=== PATIENT | male | born 1955 | race Caucasian/White ===

== ENCOUNTER 2016-06-07 20:16 | Inpatient (IN) | payer OTHER ==
[~2016-06-07] VITALS: Ht 185.4 cm; Wt 106.5 kg
[2016-06-07] MEDS ORDERED: ALBUTEROL 0.5% (NEB) 2.5 MG/0.5 ML AMP INH STA ×2 (20:21→21:34)
[2016-06-07] MEDS ORDERED: FUROSEMIDE 40 MG INJ IV ONE (20:30)
[2016-06-07] MEDS ORDERED: ASPIRIN 81 MG TAB PO ONE (20:30)
[2016-06-07] MEDS ORDERED: ENALAPRILAT 1.25 MG INJ IV ONE (20:30)
[2016-06-07 20:37] LABS: ADD SCAN DIFF NO
[2016-06-07 20:38] LABS: BASOPHIL # 0.1 10^3/ul (0.0-0.1); BASOPHILS % 0.7 % (0.0-2.0); EOSINOPHILS # 0.3 10^3/ul (0.0-0.5); EOSINOPHILS % 3.5 % (0.0-7.0); HEMATOCRIT 41.5 % (42.0-52.0); HEMOGLOBIN 13.9 g/dl (14.0-18.0); LYMPHOCYTES # 1.7 10^3/ul (0.8-2.9); LYMPHOCYTES % 18.6 % (15.0-51.0); MEAN CORPUSCULAR HEMOGLOBIN 30.5 pg (29.0-33.0); MEAN CORPUSCULAR HGB CONC 33.5 g/dl (32.0-37.0); MEAN CORPUSCULAR VOLUME 91.2 fl (82.0-101.0); MEAN PLATELET VOLUME 9.7 fl (7.4-10.4); MONOCYTE # 0.8 10^3/ul (0.3-0.9); MONOCYTES % 8.5 % (0.0-11.0); NEUTROPHIL # 6.2 10^3/ul (1.6-7.5); PLATELET COUNT 148 10^3/UL (140-415); RED BLOOD COUNT 4.55 10^6/ul (4.70-6.10); RED CELL DISTRIBUTION WIDTH 13.5 % (11.5-14.5); WHITE BLOOD COUNT 9.2 10^3/ul (4.8-10.8)
[2016-06-07 20:45] LABS: AADO2 Arterial 486.5 mmHg (7.0-24.0); Allen Test ACCEPTAB; Arterial Base Excess 3.1 mmol/L (-3.0-3); Arterial COHb 0.2 % (0.0-3.0); Arterial Fraction of Oxyhgb 98.1 % (93.0-99.0); Arterial HCO3 31.3 mmol/L (22.0-26.0); Arterial MetHb 0.4 % (0.0-1.5); Arterial Total Hemglobin 14.9 g/dl (12.0-18.0); MODE MASK - NRB
--- NOTE | 2016-06-07 20:53 | RADRPT ---
PROCEDURE: XR Chest. CLINICAL INDICATION: Pain. TECHNIQUE: Single frontal chest x-ray. COMPARISON: None. FINDINGS: The cardiomediastinal silhouette is unremarkable. Us minimal atelectasis at the left lung base.. No focal infiltrate is seen. There is no pleural effusion. There is no pneumothorax. Posterior pedi yoanna screws lower cervical spine are partially visualized.. IMPRESSION: Minimal left basilar atelectasis. RPTAT: [facility] .Dilan Carrillo MD, MD Date Time Electronically viewed and signed by .Dilan Carrillo MD, on 06/07/2016 20:52 .K/
[2016-06-07 21:42] LABS: INR 0.91; PROTIME 12.2 Sec (12.2-14.2)
[2016-06-07 22:00] LABS: ALBUMIN 3.4 g/dl (3.3-4.9)
[2016-06-07] MEDS ORDERED: predniSONE 20 MG TAB PO ONE (22:00)
[2016-06-07 22:03] LABS: ALBUMIN/GLOBULIN RATIO 1.25; BILIRUBIN,INDIRECT 0.2 mg/dl (0-1.1); BILIRUBIN,TOTAL 0.2 mg/dl (0.2-1.3); CREATININE 0.88 mg/dl (0.61-1.24); TOTAL PROTEIN 6.1 g/dl (6.1-8.1)
[2016-06-07 22:04] LABS: CALCIUM 7.7 mg/dl (8.4-10.2)
[2016-06-07 22:14] LABS: TROPONIN-I 0.031 ng/ml (0.00-0.12)
[2016-06-07] MEDS ORDERED: LEVOFLOXACIN 750MG/D5W (PMX) 150 ML IVPB ONE (22:30)
[2016-06-07] MEDS ORDERED: POTASSIUM CHLORIDE 250 ML IVPB ONE (22:30)
--- NOTE | 2016-06-07 22:33 | ERA ---
ER Documentation Chief Complaint Date/Time DATE: 06/07/16 TIME: 22:26 Chief Complaint SOB,hx COPD,received nitro sprays X4,c/o back pain HPI 60-year-old man brought in by EMS from home for chest discomfort and shortness of breath. Patient complains of wheezing and has not a history of chronic obstructive pulmonary disease. He states he recently finished his Medrol Dosepak, and was discharged 2 weeks ago from the hospital after being treated as an inpatient for pneumonia. He denies calf or leg swelling, no fevers or chills, no headache or blurry vision, no vomiting or diarrhea. Patient denies home oxygen use. At the scene patient was given multiple doses of sublingual nitroglycerin due to severe hypertension. Patient was transported here by EMS without further complications. ROS All systems reviewed and are negative except as per history of present illness. Allergies Allergies: Coded Allergies: No Known Allergy (Unverified , 06/07/16) PMhx/Soc Hypertension, chronic obstructive pulmonary disease, obesity, recent pneumonia Anesthesia Reaction: No Hx Neurological Disorder: No Hx Psychiatric Problems: No Hx Alcohol Use: No Hx Substance Use: No Hx Tobacco Use: Yes Smoking Status: Former smoker FmHx Family History: No diabetes Physical Exam Vitals Vital Signs Date Time Temp Pulse Resp B/P Pulse Ox O2 Delivery O2 Flow Rate FiO2 06/07/16 22:15 106 16 93 Nasal Cannula 3.0 06/07/16 20:40 108 18 100 Non Rebreather Mask 15.0 06/07/16 20:21 99.3 112 17 144/112 98 Physical Exam GENERAL: Well-developed, well-nourished, well-hydrated, dyspneic. Afebrile HEENT: Moist mucous membranes, pink conjunctiva, no cervical spine tenderness or step-off deformities, no goiter, no jaundice or icterus, extraocular movements intact without pain. No submandibular induration, and no pharyngeal erythema NEURO: Alert and oriented 3, cranial nerves II through XII intact bilaterally, pupils equal round reactive to light, no focal deficits or facial asymmetry, sensation intact distally Strength 5/5 in upper and lower extremities bilaterally CARDIAC: Tachycardic and regular, no murmurs rubs or gallops LUNGS: Bibasilar crackles and wheezing throughout, no stridor ABDOMEN: Soft nontender, no guarding, no rigidity, no rebound, no psoas sign no obturator sign. Normoactive bowel sounds SKIN: Warm and dry to touch, no abrasions, contusions, or hematomas, no lacerations, no ecchymosis, no target lesions, and without ulcers EXTREMITIES: No clubbing cyanosis or edema, calves are bilaterally symmetrical, no Homans sign, no popliteal cord sign. Distal pulses equal and bilateral PSYCH: Normal affect without agitation or irritability Result Diagram: 06/07/16202406/07/162122 Results 24 hrs Laboratory Tests Test 06/07/16 20:21 06/07/16 20:25 06/07/16 21:23 Arterial Blood HCO3 31.3mmol/L Arterial Blood Base Excess 3.1mmol/L Arterial Blood Oxygen Saturation 98.7mmHG Dillon Test ACCEPTAB Arterial Blood Gas Puncture Site Right Radial Arterial Blood Carboxyhemoglobin 0.2% Arterial Blood Date Drawn 06/07/2016 8:32:36 PM Arterial Blood Methemoglobin 0.4% Arterial Blood pCO2 (Temp correct) 63.8mmhg Arterial Blood pH (Temp corrected) 7.309 Arterial Blood pO2 (Temp corrected) 162.7mmHG Blood Gas A-a O2 Differential 486.5mmHg Blood Gas Modality MASK - NRB Blood Gas Notified Time 06/07/2016 8:45:33 PM Blood Gas Notified Whom AA Blood Gas Specimen Source Blood arterial Blood Gas Temperature 37.0C FiO2 100.0% Oxyhemoglobin Percent 98.1% Total Hemoglobin 14.9g/dl Basophils # 0.110^3/ul Basophils % 0.7% Eosinophils # 0.310^3/ul Eosinophils % 3.5% Hematocrit 41.5% Hemoglobin 13.9g/dl INR International Normalized Ratio 0.91 Lymphocytes # 1.710^3/ul Lymphocytes % 18.6% Mean Corpuscular Hemoglobin 30.5pg Mean Corpuscular Hemoglobin Concent 33.5g/dl Mean Corpuscular Volume 91.2fl Mean Platelet Volume 9.7fl Monocytes # 0.810^3/ul Monocytes % 8.5% Neutrophils # 6.210^3/ul Neutrophils % 67.0% Nucleated Red Blood Cells # 0.010^3/ul Nucleated Red Blood Cells % 0.0/100WBC Platelet Count 44519^3/UL Prothrombin Time 12.2Sec Prothrombin Time Ratio 1.0 Red Blood Count 4.5510^6/ul Red Cell Distribution Width 13.5% White Blood Count 9.210^3/ul Alanine Aminotransferase (ALT/SGPT) 48IU/L Albumin 3.4g/dl Albumin/Globulin Ratio 1.25 Alkaline Phosphatase 83IU/L Anion Gap 13 Aspartate Amino Transf (AST/SGOT) 30IU/L Blood Urea Nitrogen 12mg/dl Calcium Level 7.7mg/dl Carbon Dioxide Level 29mmol/L Chloride Level 103mmol/L Creatinine 0.88mg/dl Direct Bilirubin 0.00mg/dl Globulin 2.70g/dl Glucose Level 115mg/dl Indirect Bilirubin 0.2mg/dl Lipase 56U/L Potassium Level 3.0mmol/L Sodium Level 142mmol/L Total Bilirubin 0.2mg/dl Total Protein 6.1g/dl Troponin I 0.031ng/ml Current Medications Medications (Trade) Dose Ordered Sig/Peng Route PRN Reason Start Time Stop Time Status Last Admin Dose Admin Aspirin (Aspirin) 324 mg ONCE ONCE PO 06/07/16 20:30 06/07/16 20:31 DC 06/07/16 20:53 Furosemide (Lasix) 80 mg ONCE ONCE IV 06/07/16 20:30 06/07/16 20:31 DC 06/07/16 20:55 Enalaprilat (Vasotec Iv) 1.25 mg ONCE ONCE IV 06/07/16 20:30 06/07/16 20:31 DC 06/07/16 20:54 Albuterol (Proventil 0.5% (Neb)) 10 mg ONCE STAT INH 06/07/16 20:21 06/07/16 20:23 DC 06/07/16 20:41 Albuterol (Proventil 0.5% (Neb)) 10 mg ONCE STAT INH 06/07/16 21:34 06/07/16 21:35 DC 06/07/16 22:15 Prednisone 40 mg 40 mg ONCE ONCE PO 06/07/16 22:00 06/07/16 22:01 DC 06/07/16 22:02 Potassium Chloride (KCl 40 MEQ/250 ML NS) 250 ml @ 62.5 mls/hr ONCE ONCE IVPB 06/07/16 22:30 06/08/16 02:29 UNV Procedures/MDM IV line was established patient was placed on quality assurance monitor chassis rhythm strip revealed a tachycardia at 120 bpm with upright P and T waves. Patient was afebrile. Oxygen saturation initially low. For wheezing I treated him here with albuterol 10 mg via nebulizer. Patient also received aspirin 324 mg p.o. for cardioprotective measures, enalapril 1.25 mg IV for hypertension, furosemide 80 mg IV. One AP view of the chest performed, read by me reveals no acute infiltrates, normal mediastinum, sharp costophrenic and cardiac borders, no air under the diaphragm. Otherwise unremarkable chest x-ray. EKG performed, read by me revealed a sinus tachycardia at 120 bpm, right axis deviation and a right bundle branch block, QRS duration 130 ms, no concerning ST elevations or depressions noted. Despite above treatments patient's room air oxygen saturation was about 80%. I treated him with another dose of albuterol 10 mg via nebulizer and prednisone 40 mg p.o. CBC was normal, electrolytes revealed hypokalemia, liver function tests were normal, troponin was negative. ABG revealed a pH of 7.31, PCO2 64, PO2 160 revealing respiratory acidosis Critical Care: Time: 37 minutes, this was time separate from other procedures. Treatments/Evaluations: Close monitoring and treatment of unstable vital signs, cardiorespiratory, and neurologic status, while maintaining tight balance of fluid, respiratory, and cardiac interventions. For hypokalemia I supplemented him here with 40 mEq of potassium IV. Patient will be admitted to telemetry setting for continued medical management and pulmonary consultation. Departure Diagnosis: Primary Impression: COPD (chronic obstructive pulmonary disease) Qualified Code: J44.1 - Chronic obstructive pulmonary disease with acute exacerbation Additional Impressions: Hypokalemia Hypertension Qualified Code: I10 - Essential hypertension Condition: ZACKERY Ko MD Jun 07, 2016 22:33
[2016-06-07] MEDS ORDERED: NITROGLYCERIN (SL) 0.4 MG TAB SL PRN (23:00)
[2016-06-07] MEDS ORDERED: ALBUTEROL/IPRATROPIUM (NEB) 3 ML AMP HHN PRN (23:00)
[2016-06-07] MEDS ORDERED: DOCUSATE SODIUM 100 MG CAP PO PRN (23:00)
[2016-06-07] MEDS ORDERED: ONDANSETRON 4 MG INJ IV PRN (23:00)
[2016-06-07] MEDS ORDERED: NACL 0.9% 3 ML SYG IV SCH (23:00)
[2016-06-07] MEDS ORDERED: ACETAMINOPHEN 325 MG TAB PO PRN (23:00)
[2016-06-07] MEDS ORDERED: POTASSIUM CHLORIDE 250 ML IVPB SCH (23:00)
--- NOTE | 2016-06-07 23:05 | HP ---
Date/Time of Note Date/Time of Note DATE: 06/07/16 TIME: 22:58 Assessment/Plan VTE Prophylaxis VTE Prophylaxis Intervention: LMWH Assessment/Plan Assessment/Plan 60 yo male with a past medical history of COPD, migraines, who presents with acute shortness of breath. 1. Acute hypoxemic respiratory failure 2/2 to COPD exacerbation - will admit the patient to telemetry, consult pulm, consider CT chest (defer to pulm), IV steroids, Levaquin, duonebs q4h scheduled and q2h prn, check TSH 2. Hypokalemia - replete, check mag level 3. Migraines - imitrex prn 4. GI ppx - pepcid 5. DVT ppx - lovenox answered all of his questions. as per clinical course. this history and physical took greater then 45 minutes to complete HPI/ROS Admit Date/Time Admit Date/Time 06/07/2016, 10:58 pm Hx of Present Illness 60 yo male with a past medical history of COPD, migraines, who presents with acute shortness of breath. He states that over the last 3 days, the shortness of breath has limited him to walk about 100 ft, and worsened progressively. He is unable to speak in full sentences. He recently was in [facility] for a pneumonia, requiring hospitalization for one week, discharged on 05/26/16, given antibiotics and 1 week steroid taper. Since then he has worsening fatigue and headache. Denies any chest pain, loss of consciousness, fevers/chills, nausea/ vomiting/diarrhea/constipation or other constitutional symptoms. He did receive his flu shots. Denies any sick contacts. ED course: continuous breathing treatment, levaquin, prednisone ROS 14 point review of systems completed, please refer to HPI for any positive findings PMH/Family/Social Past Medical History COPD, Migraines Past Surgical History 8 rods placed in his neck, shoulder surgeries Past Surgical Hx: cholecystectomy Family History Significant Family History: heart disease (in father) Social History Alcohol Use: none Smoking Status: Former smoker (quit 2 1/2 years ago, 80 pack year history) Drug Use: other (meth - quit 7 years ago) Exam/Review of Systems Vital Signs Vitals Vital Signs Date Time Temp Pulse Resp B/P Pulse Ox O2 Delivery O2 Flow Rate FiO2 06/07/16 22:15 106 16 93 Nasal Cannula 3.0 06/07/16 20:21 99.3 144/112 Exam Exam Gen Ileana: moderate respiratory distress, AAOx4 HEENT: NC/AT, PERRLA, EOMI, no pharyngeal erythema, no tonsillar exudates, no lymphadenopathy, no JVD, no carotid bruits NECK: supple, no thyromegaly THORAX: symmetrical, no obvious deformities CV: S1S2, RRR, no M/G/R Lungs: diminished breath sounds to the bases, with scattered wheezing, no rhonchi or crackles appreciated Abd: soft, NT/ND, +BS, no rebound, no guarding, neg HSM EXT: no edema, no ecchymosis, no clubbing, FROM Neuro: CN II-XII grossly intact, no focal deficits Psych: good mentation, alert and oriented, good mood and affect Skin: C/D/I Labs Result Diagram: 06/07/16202406/07/162122 Medications Medications Current Medications Levofloxacin/ Dextrose 150 ml @ 100 mls/hr ONCE ONCE IVPB Last administered on 06/07/16t 22:52; Admin Dose 100 MLS/HR; Start 06/07/16 at 22:30; Stop at 23:59 Potassium Chloride (KCl 40 MEQ/250 ML NS) 250 ml @ 62.5 mls/hr ONCE IVPB ; Start 06/07/16 at 23:00; Stop 06/08/16 at 03:00 Procedures Procedures CXR IMPRESSION: Minimal left basilar atelectasis. GONZALO MOBLEY MD Jun 07, 2016 23:05
[2016-06-08] VITALS (11 sets, daily range): BP systolic 110–150; BP diastolic 60–88; PULSE 98–110; RESP 18–22; TEMP 98.4; BMI 33.3
[2016-06-08 00:14] LABS: CHOL/HDL RATIO 7.2 RATIO; MAGNESIUM 1.5 mg/dl (1.7-2.5)
[2016-06-08 00:43] LABS: THYROID STIMULATING HORMONE 2.53 MIU/L (0.465-4.680)
[2016-06-08] MEDS: ALBUTEROL/IPRATROPIUM (NEB) 3 ML AMP HHN SCH ×6 (01:05→20:19)
[2016-06-08] MEDS: METHYLPREDNISOLONE 125 MG INJ IV SCH ×5 (01:26→23:34)
[2016-06-08] MEDS: LORAZEPAM 2 MG INJ IV PRN ×3 (01:28→23:34)
[2016-06-08] MEDS ORDERED: LORAZEPAM 2 MG INJ IV ONE (02:30)
[2016-06-08 06:59] LABS: ADD SCAN DIFF NO
[2016-06-08 07:03] LABS: ABNORMAL IP MESSAGE 1; BASOPHILS % 0.2 % (0.0-2.0); EOSINOPHILS % 0.1 % (0.0-7.0); HEMATOCRIT 41.3 % (42.0-52.0); HEMOGLOBIN 13.7 g/dl (14.0-18.0); LYMPHOCYTES # 0.3 10^3/ul (0.8-2.9); LYMPHOCYTES % 3.5 % (15.0-51.0); MEAN CORPUSCULAR HEMOGLOBIN 30.6 pg (29.0-33.0); MEAN CORPUSCULAR HGB CONC 33.2 g/dl (32.0-37.0); MEAN CORPUSCULAR VOLUME 92.2 fl (82.0-101.0); MEAN PLATELET VOLUME 9.2 fl (7.4-10.4); MONOCYTE # 0.1 10^3/ul (0.3-0.9); MONOCYTES % 1.1 % (0.0-11.0); NEUTROPHIL # 9.1 10^3/ul (1.6-7.5); NEUTROPHILS % 93.6 % (39.0-77.0); PLATELET COUNT 136 10^3/UL (140-415); RED BLOOD COUNT 4.48 10^6/ul (4.70-6.10); RED CELL DISTRIBUTION WIDTH 13.5 % (11.5-14.5); WHITE BLOOD COUNT 9.7 10^3/ul (4.8-10.8)
[2016-06-08 07:20] LABS: POTASSIUM 4.3 mmol/L (3.5-5.1)
[2016-06-08 07:23] LABS: CREATININE 0.8 mg/dl (0.61-1.24)
[2016-06-08 07:24] LABS: CALCIUM 9.4 mg/dl (8.4-10.2)
[2016-06-08] MEDS: FAMOTIDINE 20 MG TAB PO SCH ×2 (08:41→20:40)
[2016-06-08] MEDS: morphine 2 MG INJ IV PRN (08:44)
[2016-06-08] MEDS: ENOXAPARIN 40 MG/0.4 ML SYG SC SCH (08:51)
[2016-06-08] MEDS ORDERED: ASPIRIN 81 MG TAB PO SCH (09:00)
--- NOTE | 2016-06-08 11:04 | PN ---
Date/Time of Note Date/Time of Note DATE: 06/08/16 TIME: 11:00 Assessment/Plan VTE Prophylaxis VTE Prophylaxis Intervention: LMWH Lines/Catheters IV [facility]from [facility] Urinary Cath still in place: No Assessment/Plan Assessment/Plan 1. COPD exacerbation, neb/levaquin/SoluMedro/O2 2 Respiratory failure due to COPD, O2 and Nebulizer 3. Migraines - imitrex prn 4. GI ppx - pepcid 5. DVT ppx - lovenox Subjective 24 Hr Interval Summary Free Text/Dictation less but still with SOB Exam/Review of Systems Vital Signs Vitals Vital Signs Date Time Temp Pulse Resp B/P Pulse Ox O2 Delivery O2 Flow Rate FiO2 06/08/16 09:35 105 26 93 Nasal Cannula 3.0 06/08/16 02:20 98.0 117/66 Intake and Output 06/07/16 06/07/16 06/08/16 15:00 23:00 07:00 Intake Total 600 ml Output Total 1450 ml Balance -850 ml Exam Constitutional: alert, oriented, well developed Psych: nl mood/affect, no complaints Head: atraumatic, normocephalic Eyes: EOMI, PERRL, nl conjunctiva, nl lids ENMT: nl external ears & nose, nl lips & teeth, nl nasal mucosa & septum Neck: non-tender, supple Respiratory: diminished breath sounds Cardiovascular: nl pulses, regular rate and rhythm, No S3, No S4, No bruits, No diastolic murmur, No edema, No gallop, No irregular rhythm, No jugular venous distention (JVD), No murmurs/extra sounds, No other, No rub, No systolic murmur Gastrointestinal: nl liver, spleen, non-tender, soft, No ascites, No bowel sounds, No distended, No firm, No hepatomegaly, No mass , No other, No rebound or guarding, No splenomegaly, No surgical scars, No tender Musculoskeletal: nl extremities to inspection Neurological: TRUCK DISPATCHER II-XII intact, nl mental status, nl speech, nl strength Skin: nl turgor Lymph: nl lymph nodes Results Result Diagram: 06/08/16 0555 06/08/16 0555 Results 24 hrs Laboratory Tests Test 06/07/16 20:21 06/07/16 20:25 06/07/16 21:19 06/07/16 21:23 Arterial Blood HCO3 31.3 H Arterial Blood Base Excess 3.1 H Arterial Blood Oxygen Saturation 98.7 H Dillon Test ACCEPTAB Arterial Blood Gas Puncture Site Right Radial Arterial Blood Carboxyhemoglobin 0.2 Arterial Blood Date Drawn 06/07/2016 8:32:36 PM Arterial Blood Methemoglobin 0.4 Arterial Blood pCO2 (Temp correct) 63.8 H Arterial Blood pH (Temp corrected) 7.309 L Arterial Blood pO2 (Temp corrected) 162.7 H Blood Gas A-a O2 Differential 486.5 H Blood Gas Modality MASK - NRB Blood Gas Notified Time 06/07/2016 8:45:33 PM Blood Gas Notified Whom AA Blood Gas Specimen Source Blood arterial Blood Gas Temperature 37.0 FiO2 100.0 Oxyhemoglobin Percent 98.1 Total Hemoglobin 14.9 Basophils # 0.1 Basophils % 0.7 Eosinophils # 0.3 Eosinophils % 3.5 Hematocrit 41.5 L Hemoglobin 13.9 L INR International Normalized Ratio 0.91 Lymphocytes # 1.7 Lymphocytes % 18.6 Mean Corpuscular Hemoglobin 30.5 Mean Corpuscular Hemoglobin Concent 33.5 Mean Corpuscular Volume 91.2 Mean Platelet Volume 9.7 Monocytes # 0.8 Monocytes % 8.5 Neutrophils # 6.2 Neutrophils % 67.0 Nucleated Red Blood Cells # 0.0 Nucleated Red Blood Cells % 0.0 Platelet Count 148 Prothrombin Time 12.2 Prothrombin Time Ratio 1.0 Red Blood Count 4.55 L Red Cell Distribution Width 13.5 White Blood Count 9.2 Hemoglobin A1c 6.6 H Alanine Aminotransferase (ALT/SGPT) 48 Albumin 3.4 Albumin/Globulin Ratio 1.25 Alkaline Phosphatase 83 Anion Gap 13 Aspartate Amino Transf (AST/SGOT) 30 Blood Urea Nitrogen 12 Calcium Level 7.7 L Carbon Dioxide Level 29 Chloride Level 103 Cholesterol Level 225 H Cholesterol/HDL Ratio 7.2 Creatinine 0.88 Direct Bilirubin 0.00 Globulin 2.70 Glucose Level 115 HDL Cholesterol 31 Indirect Bilirubin 0.2 LDL Cholesterol, Calculated 90 Lipase 56 Magnesium Level 1.5 L Potassium Level 3.0 L Sodium Level 142 Thyroid Stimulating Hormone (TSH) 2.530 Total Bilirubin 0.2 Total Protein 6.1 Triglycerides Level 518 H Troponin I 0.031 Test 06/08/16 05:55 Anion Gap 17 H Basophils # 0.0 Basophils % 0.2 Blood Urea Nitrogen 15 Calcium Level 9.4 Carbon Dioxide Level 30 Chloride Level 100 Creatinine 0.80 Eosinophils # 0.0 Eosinophils % 0.1 Glucose Level 189 Hematocrit 41.3 L Hemoglobin 13.7 L Lymphocytes # 0.3 L Lymphocytes % 3.5 L Mean Corpuscular Hemoglobin 30.6 Mean Corpuscular Hemoglobin Concent 33.2 Mean Corpuscular Volume 92.2 Mean Platelet Volume 9.2 Monocytes # 0.1 L Monocytes % 1.1 Neutrophils # 9.1 H Neutrophils % 93.6 H Nucleated Red Blood Cells # 0.0 Nucleated Red Blood Cells % 0.0 Platelet Count 136 L Potassium Level 4.3 Red Blood Count 4.48 L Red Cell Distribution Width 13.5 Sodium Level 143 White Blood Count 9.7 Medications Medications Current Medications Lorazepam (Ativan) 0.5 mg Q6H PRN IV ANXIETY Last administered on 06/08/16 01: 28; Admin Dose 0.5 MG; Start 06/07/16 at 23:00 Ondansetron HCl (Zofran Inj) 4 mg Q6H PRN IV NAUSEA AND/OR VOMITING; Start at 23:00 Aspirin (Aspirin) 81 mg DAILY PO Last administered on 06/08/16 08:41; Admin Dose 81 MG; Start 06/08/16 at 09:00 Methylprednisolone Sodium Succinate (Solu-Medrol) 60 mg Q6 IV Last administered on 06/08/16 06:13; Admin Dose 60 MG; Start 06/08/16 at 00:00 Nitroglycerin (Nitroglycerin (Sl Tab) 0.4 Mg) 1 tab Q5M PRN SL CHEST PAIN; Start 06/07/16 at 23:00 Acetaminophen (Tylenol Tab) 650 mg Q6H PRN PO PAIN LEVEL 1-3 OR FEVER Last administered on 06/08/16 08:44; Admin Dose 650 MG; Start 06/07/16 at 23:00 Morphine Sulfate (morphine) 2 mg Q4H PRN IV PAIN LEVEL 7-10 Last administered on 06/08/16 08:44; Admin Dose 2 MG; Start 06/07/16 at 23:00 Docusate Sodium (Colace) 100 mg Q12H PRN PO CONSTIPATION; Start 06/07/16 at 23: 00 Famotidine (Pepcid) 20 mg Q12 PO Last administered on 06/08/16 08:41; Admin Dose 20 MG; Start 06/08/16 at 09:00 Enoxaparin Sodium 40 mg 40 mg DAILY SC Last administered on 06/08/16 08:51; Admin Dose 40 MG; Start 06/08/16 at 09:00 Levofloxacin/ Dextrose (Levaquin 500mg/ D5W 100 ml (Pmx)) 100 ml @ 100 mls/hr Q24H IVPB ; Start 06/08/16 at 23:00 BETH HERNADEZ MD Jun 08, 2016 11:04
[2016-06-08] MEDS: HYDROCODONE/APAP (10/325) TAB PO PRN ×3 (12:00→23:06)
--- NOTE | 2016-06-08 12:08 | CONS ---
Date/Time of Note Date/Time of Note DATE: 06/08/16 TIME: 12:00 Assessment/Plan Assessment/Plan Additional Assessment/Plan Chest x-ray was reviewed from yesterday which is showing emphysematous changes. No acute infiltrates identified. ABG was reviewed from yesterday which is showing hypoxemic and hypercapnic respiratory failure. This was obtained on 100% FiO2. Assessment recommendations; 1. Patient admitted with COPD exacerbation and acute bronchitis with significant interval improvement. 2. History of hypercapnic respiratory failure patient supposed to be on BiPAP at home however he still has not purchased the machine. 3. History of recent pneumonia. Interval resolution. Continue current treatment for now. Patient responding well to the current treatment regimen. Consultation Date/Type/Reason Admit Date/Time 06/07/2016, 10:58 pm Date of Consultation: Jun 08, 2016 Type of Consultation: Pulmonary Reason for Consultation Pulmonary consultation obtained evaluation of hypoxemic/hypercapnic respiratory failure. History present illness; patient is a 60-year-old white male who came into the emergency room yesterday with a 2 day history of increasing shortness of breath , chest congestion and sputum production. Also having some wheezing off and on. One variation here patient was diagnosed with hypercapnic/hypoxemic respiratory failure and admitted to the medical floor. Be started on bronchodilators as well as prednisone with significant improvement overnight. According to the patient , he was admitted to [facility] about 2 weeks ago ,he stayed there for a week and had bilateral pneumonia. He just finished oral antibiotics as well as a tapering dose of prednisone. Denies any chest pain, fever, chills. Denies any arthralgias, myalgias sore throat. Past medical history; next 1. History of severe COPD. And is supposed to an BiPAP at home. 2. Of C-spine surgery. 3. Status post cholecystectomy. 4. History of pneumonia in the past. 5. Patient is thriving history of aortic stenosis. 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 Medications; were reviewed. Allergies; none. Social history; patient has 100 pack year smoking history he quit smoking 2-1/2 years ago. No swelling or drug abuse. Family history; patient is single. He has 4 children. Most of any illnesses in the family. Occupational history; patient was a maintenance truck driver. Review of systems; denies any headache, complains of chronic mild neck pain. Denies any dysphagia, odynophagia. Denies any chest pain, angina. Complains of mild wheezing for the last few days. Compass of cough and sputum production. Denies any hemoptysis. Has any abdominal pain, nausea. Denies any vomiting. Denies any melena, hematochezia. Denies any urinary symptoms. Complains of chronic dyspnea on exertion walking 100 feet. Complains of snoring. Daytime sleepiness. Weight is stable. Denies any edema. Denies any orthopnea. General examination; middle-aged male currently in no distress awake and alert. Psychological: nl mood/affect, no complaints Past Surgical History Past Surgical Hx: cholecystectomy Social History Alcohol Use: none Smoking Status: Former smoker Drug Use: other (meth - quit 7 years ago) Exam/Review of Systems Vital Signs Vitals Vital Signs Date Time Temp Pulse Resp B/P Pulse Ox O2 Delivery O2 Flow Rate FiO2 06/08/16 09:35 105 26 93 Nasal Cannula 3.0 06/08/16 02:20 98.0 117/66 Intake and Output 06/07/16 06/07/16 06/08/16 15:00 23:00 07:00 Intake Total 600 ml Output Total 1450 ml Balance -850 ml Exam H EENT examination; supple neck, no JVD. No lymphadenopathy. Midline trachea. Patient is edentulous. Pharynx is clear. Pupils are midsize and reactive to light bilaterally. No neck masses, no thyromegaly. Chest examination; diminished breath sound bilaterally with very minimal expiratory wheezing bilaterally. S1-S2 audible, no murmurs. Regular rhythm. Abdomen examination; soft, protuberant. No organomegaly. Bowel sounds audible. Extremity examination; no peripheral edema. Pulses 1+ bilaterally. There is no clubbing. Next ANALYSIS OR RESEARCH SAFETY INSPECTOR examination; cranial nerves are intact. No motor deficit. Results Result Diagram: 06/08/16 0555 06/08/16 0555 Results 24 hrs Laboratory Tests Test 06/07/16 20:21 06/07/16 20:25 06/07/16 21:19 06/07/16 21:23 Arterial Blood HCO3 31.3 H Arterial Blood Base Excess 3.1 H Arterial Blood Oxygen Saturation 98.7 H Dillon Test ACCEPTAB Arterial Blood Gas Puncture Site Right Radial Arterial Blood Carboxyhemoglobin 0.2 Arterial Blood Date Drawn 06/07/2016 8:32:36 PM Arterial Blood Methemoglobin 0.4 Arterial Blood pCO2 (Temp correct) 63.8 H Arterial Blood pH (Temp corrected) 7.309 L Arterial Blood pO2 (Temp corrected) 162.7 H Blood Gas A-a O2 Differential 486.5 H Blood Gas Modality MASK - NRB Blood Gas Notified Time 06/07/2016 8:45:33 PM Blood Gas Notified Whom AA Blood Gas Specimen Source Blood arterial Blood Gas Temperature 37.0 FiO2 100.0 Oxyhemoglobin Percent 98.1 Total Hemoglobin 14.9 Basophils # 0.1 Basophils % 0.7 Eosinophils # 0.3 Eosinophils % 3.5 Hematocrit 41.5 L Hemoglobin 13.9 L INR International Normalized Ratio 0.91 Lymphocytes # 1.7 Lymphocytes % 18.6 Mean Corpuscular Hemoglobin 30.5 Mean Corpuscular Hemoglobin Concent 33.5 Mean Corpuscular Volume 91.2 Mean Platelet Volume 9.7 Monocytes # 0.8 Monocytes % 8.5 Neutrophils # 6.2 Neutrophils % 67.0 Nucleated Red Blood Cells # 0.0 Nucleated Red Blood Cells % 0.0 Platelet Count 148 Prothrombin Time 12.2 Prothrombin Time Ratio 1.0 Red Blood Count 4.55 L Red Cell Distribution Width 13.5 White Blood Count 9.2 Hemoglobin A1c 6.6 H Alanine Aminotransferase (ALT/SGPT) 48 Albumin 3.4 Albumin/Globulin Ratio 1.25 Alkaline Phosphatase 83 Anion Gap 13 Aspartate Amino Transf (AST/SGOT) 30 Blood Urea Nitrogen 12 Calcium Level 7.7 L Carbon Dioxide Level 29 Chloride Level 103 Cholesterol Level 225 H Cholesterol/HDL Ratio 7.2 Creatinine 0.88 Direct Bilirubin 0.00 Globulin 2.70 Glucose Level 115 HDL Cholesterol 31 Indirect Bilirubin 0.2 LDL Cholesterol, Calculated 90 Lipase 56 Magnesium Level 1.5 L Potassium Level 3.0 L Sodium Level 142 Thyroid Stimulating Hormone (TSH) 2.530 Total Bilirubin 0.2 Total Protein 6.1 Triglycerides Level 518 H Troponin I 0.031 Test 06/08/16 05:55 Anion Gap 17 H Basophils # 0.0 Basophils % 0.2 Blood Urea Nitrogen 15 Calcium Level 9.4 Carbon Dioxide Level 30 Chloride Level 100 Creatinine 0.80 Eosinophils # 0.0 Eosinophils % 0.1 Glucose Level 189 Hematocrit 41.3 L Hemoglobin 13.7 L Lymphocytes # 0.3 L Lymphocytes % 3.5 L Mean Corpuscular Hemoglobin 30.6 Mean Corpuscular Hemoglobin Concent 33.2 Mean Corpuscular Volume 92.2 Mean Platelet Volume 9.2 Monocytes # 0.1 L Monocytes % 1.1 Neutrophils # 9.1 H Neutrophils % 93.6 H Nucleated Red Blood Cells # 0.0 Nucleated Red Blood Cells % 0.0 Platelet Count 136 L Potassium Level 4.3 Red Blood Count 4.48 L Red Cell Distribution Width 13.5 Sodium Level 143 White Blood Count 9.7 Medications Medications Current Medications Lorazepam (Ativan) 0.5 mg Q6H PRN IV ANXIETY Last administered on 06/08/16 01: 28; Admin Dose 0.5 MG; Start 06/07/16 at 23:00 Ondansetron HCl (Zofran Inj) 4 mg Q6H PRN IV NAUSEA AND/OR VOMITING; Start at 23:00 Methylprednisolone Sodium Succinate (Solu-Medrol) 60 mg Q6 IV Last administered on 06/08/16 06:13; Admin Dose 60 MG; Start 06/08/16 at 00:00 Nitroglycerin (Nitroglycerin (Sl Tab) 0.4 Mg) 1 tab Q5M PRN SL CHEST PAIN; Start 06/07/16 at 23:00 Acetaminophen (Tylenol Tab) 650 mg Q6H PRN PO PAIN LEVEL 1-3 OR FEVER Last administered on 06/08/16 08:44; Admin Dose 650 MG; Start 06/07/16 at 23:00 Morphine Sulfate (morphine) 2 mg Q4H PRN IV PAIN LEVEL 7-10 Last administered on 06/08/16 08:44; Admin Dose 2 MG; Start 06/07/16 at 23:00 Docusate Sodium (Colace) 100 mg Q12H PRN PO CONSTIPATION; Start 06/07/16 at 23: 00 Famotidine (Pepcid) 20 mg Q12 PO Last administered on 06/08/16 08:41; Admin Dose 20 MG; Start 06/08/16 at 09:00 Enoxaparin Sodium 40 mg 40 mg DAILY SC Last administered on 06/08/16 08:51; Admin Dose 40 MG; Start 06/08/16 at 09:00 Levofloxacin/ Dextrose (Levaquin 500mg/ D5W 100 ml (Pmx)) 100 ml @ 100 mls/hr Q24H IVPB ; Start 06/08/16 at 23:00 Aspirin (Aspirin) 40 mg DAILY PO ; Start 06/09/16 at 09:00 Acetaminophen/ Hydrocodone Bitart ([place] (10/325)) 1 tab Q4H PRN PO PAIN; Start 06/08/16 at 12:00 NANCY FRAGA Jun 08, 2016 12:08
[2016-06-08] MEDS: LEVOFLOXACIN 500MG/D5W (PMX) 100 ML IVPB SCH (22:55)
[2016-06-09] MEDS: ALBUTEROL/IPRATROPIUM (NEB) 3 ML AMP HHN SCH ×6 (01:50→21:01)
[2016-06-09] MEDS: METHYLPREDNISOLONE 125 MG INJ IV SCH ×4 (05:39→23:53)
[2016-06-09] MEDS: HYDROCODONE/APAP (10/325) TAB PO PRN (06:05)
[2016-06-09 08:02] VITALS: BP 147/92; RESP 18
[2016-06-09] MEDS: FAMOTIDINE 20 MG TAB PO SCH ×2 (08:59→21:03)
[2016-06-09] MEDS: ASPIRIN 81 MG TAB PO SCH (08:59)
[2016-06-09] MEDS: ENOXAPARIN 40 MG/0.4 ML SYG SC SCH (09:00)
[2016-06-09] MEDS: LORAZEPAM 2 MG INJ IV PRN ×2 (09:07→19:28)
--- NOTE | 2016-06-09 14:24 | CONS ---
Date/Time of Note Date/Time of Note DATE: 06/09/16 TIME: 14:22 Assessment/Plan Assessment/Plan Additional Assessment/Plan Assessment and recommendations; 1. Patient admitted with severe COPD exacerbation with hypercapnic and hypoxemic respiratory failure. 2. Acute bronchitis. 3. History of recent pneumonia when the patient was in [place]. Was admitted there for a week. 4. History of cholecystectomy. 5. History of C-spine plating. Continue current treatment. Consultation Date/Type/Reason Admit Date/Time Jun 07, 2016 at 22:21 Initial Consult Date 06/08/16 Type of Consultation: Pulmonary 24 HR Interval Summary Free Text/Dictation Patient condition is slightly improved. Still complains of shortness of breath and chest tightness. Cough and chest congestion also improving. Denies any chest pain, fever chills. General examination; middle-aged man, currently in no distress. Exam/Review of Systems Vital Signs Vitals Vital Signs Date Time Temp Pulse Resp B/P Pulse Ox O2 Delivery O2 Flow Rate FiO2 06/09/16 13:23 95 3.0 06/09/16 13:23 106 22 Nasal Cannula 06/09/16 08:02 97.6 147/92 Intake and Output 06/08/16 06/08/16 06/09/16 15:00 23:00 07:00 Intake Total 800 ml 700 ml Output Total 1400 ml Balance -600 ml 700 ml Exam HEENT examination; supple neck, no JVD. No lymphadenopathy.. Midline trachea. No thyromegaly. Pupils are midsize bilaterally. Pharynx is clear. Patient is edentulous. Next Chest examination; diminished breath sounds throughout very very minimal wheezing bilaterally. S1-S2 audible, no murmurs. Regular rhythm. Abdomen examination; protuberant, nontender. No organomegaly. Bowel sounds audible. Extremity examination; no peripheral edema. DRUM STRAIGHTENER examination; no focal deficit. Results Result Diagram: 06/08/16 0555 06/08/16 0555 Medications Medications Current Medications Lorazepam (Ativan) 0.5 mg Q6H PRN IV ANXIETY Last administered on 06/09/16t 09: 07; Admin Dose 0.5 MG; Start 06/07/16 at 23:00 Ondansetron HCl (Zofran Inj) 4 mg Q6H PRN IV NAUSEA AND/OR VOMITING; Start at 23:00 Methylprednisolone Sodium Succinate (Solu-Medrol) 60 mg Q6 IV Last administered on 06/09/16 13:13; Admin Dose 60 MG; Start 06/08/16 at 00:00 Nitroglycerin (Nitroglycerin (Sl Tab) 0.4 Mg) 1 tab Q5M PRN SL CHEST PAIN; Start 06/07/16 at 23:00 Acetaminophen (Tylenol Tab) 650 mg Q6H PRN PO PAIN LEVEL 1-3 OR FEVER Last administered on 06/08/16 08:44; Admin Dose 650 MG; Start 06/07/16 at 23:00 Morphine Sulfate (morphine) 2 mg Q4H PRN IV PAIN LEVEL 7-10 Last administered on 06/08/16 08:44; Admin Dose 2 MG; Start 06/07/16 at 23:00 Docusate Sodium (Colace) 100 mg Q12H PRN PO CONSTIPATION; Start 06/07/16 at 23: 00 Famotidine (Pepcid) 20 mg Q12 PO Last administered on 06/09/16 08:59; Admin Dose 20 MG; Start 06/08/16 at 09:00 Enoxaparin Sodium 40 mg 40 mg DAILY SC Last administered on 06/09/16 09:00; Admin Dose 40 MG; Start 06/08/16 at 09:00 Levofloxacin/ Dextrose (Levaquin 500mg/ D5W 100 ml (Pmx)) 100 ml @ 100 mls/hr Q24H IVPB Last administered on 06/08/16 22:55; Admin Dose 100 MLS/HR; Start at 23:00 Aspirin (Aspirin) 40 mg DAILY PO Last administered on 06/09/16 08:59; Admin Dose 40 MG; Start 06/09/16 at 09:00 Acetaminophen/ Hydrocodone Bitart ([place] (10/325)) 1 tab Q4H PRN PO PAIN Last administered on 06/09/16 06:05; Admin Dose 1 TAB; Start 06/08/16 at 12:00 NANCY FRAGA Jun 09, 2016 14:24
--- NOTE | 2016-06-09 14:53 | PN ---
Date/Time of Note Date/Time of Note DATE: 06/09/16 TIME: 14:51 Assessment/Plan VTE Prophylaxis VTE Prophylaxis Intervention: LMWH Lines/Catheters IV Catheter Type (from Nrs): Peripheral IV Urinary Cath still in place: No Assessment/Plan Assessment/Plan 1. COPD exacerbation, slowly improving, neb/levaquin/SoluMedro/O2 2 Respiratory failure due to COPD, O2 and Nebulizer 3. Migraines - imitrex prn 4. GI ppx - pepcid 5. DVT ppx - lovenox Subjective 24 Hr Interval Summary Free Text/Dictation headache less shortness of breath Exam/Review of Systems Vital Signs Vitals Vital Signs Date Time Temp Pulse Resp B/P Pulse Ox O2 Delivery O2 Flow Rate FiO2 06/09/16 13:23 95 3.0 06/09/16 13:23 106 22 Nasal Cannula 06/09/16 08:02 97.6 147/92 Intake and Output 06/08/16 06/08/16 06/09/16 15:00 23:00 07:00 Intake Total 800 ml 700 ml Output Total 1400 ml Balance -600 ml 700 ml Exam Constitutional: alert, obese, oriented, well developed Psych: nl mood/affect, no complaints Head: atraumatic, normocephalic Eyes: EOMI, nl conjunctiva, nl lids ENMT: nl external ears & nose, nl lips & teeth, nl nasal mucosa & septum Neck: non-tender, supple Respiratory: wheezing Cardiovascular: nl pulses, regular rate and rhythm, No S3, No S4, No bruits, No diastolic murmur, No edema, No gallop, No irregular rhythm, No jugular venous distention (JVD), No murmurs/extra sounds, No other, No rub, No systolic murmur Gastrointestinal: nl liver, spleen, non-tender, soft, No ascites, No bowel sounds, No distended, No firm, No hepatomegaly, No mass , No other, No rebound or guarding, No splenomegaly, No surgical scars, No tender Musculoskeletal: nl extremities to inspection Extremities: normal pulses, No calf tenderness, No clubbing, No cyanosis, No edema, No other, No palpable cord, No pitting pedal edema, No tenderness Neurological: STORES LABORER II-XII intact, nl mental status, nl speech, nl strength Skin: nl turgor Results Result Diagram: 06/08/16 0555 06/08/16 0555 Medications Medications Current Medications Lorazepam (Ativan) 0.5 mg Q6H PRN IV ANXIETY Last administered on 06/09/16 09: 07; Admin Dose 0.5 MG; Start 06/07/16 at 23:00 Ondansetron HCl (Zofran Inj) 4 mg Q6H PRN IV NAUSEA AND/OR VOMITING; Start at 23:00 Methylprednisolone Sodium Succinate (Solu-Medrol) 60 mg Q6 IV Last administered on 06/09/16 13:13; Admin Dose 60 MG; Start 06/08/16 at 00:00 Nitroglycerin (Nitroglycerin (Sl Tab) 0.4 Mg) 1 tab Q5M PRN SL CHEST PAIN; Start 06/07/16 at 23:00 Acetaminophen (Tylenol Tab) 650 mg Q6H PRN PO PAIN LEVEL 1-3 OR FEVER Last administered on 06/08/16 08:44; Admin Dose 650 MG; Start 06/07/16 at 23:00 Morphine Sulfate (morphine) 2 mg Q4H PRN IV PAIN LEVEL 7-10 Last administered on 06/08/16 08:44; Admin Dose 2 MG; Start 06/07/16 at 23:00 Docusate Sodium (Colace) 100 mg Q12H PRN PO CONSTIPATION; Start 06/07/16 at 23: 00 Famotidine (Pepcid) 20 mg Q12 PO Last administered on 06/09/16 08:59; Admin Dose 20 MG; Start 06/08/16 at 09:00 Enoxaparin Sodium 40 mg 40 mg DAILY SC Last administered on 06/09/16 09:00; Admin Dose 40 MG; Start 06/08/16 at 09:00 Levofloxacin/ Dextrose (Levaquin 500mg/ D5W 100 ml (Pmx)) 100 ml @ 100 mls/hr Q24H IVPB Last administered on 06/08/16 22:55; Admin Dose 100 MLS/HR; Start at 23:00 Aspirin (Aspirin) 40 mg DAILY PO Last administered on 06/09/16 08:59; Admin Dose 40 MG; Start 06/09/16 at 09:00 Acetaminophen/ Hydrocodone Bitart ([place] (10/325)) 1 tab Q4H PRN PO PAIN Last administered on 06/09/16t 06:05; Admin Dose 1 TAB; Start 06/08/16 at 12:00 Sumatriptan Succinate (Imitrex) 100 mg DAILY PRN PO HEADACHE; Start 06/09/16 at 15:00 BETH HERNADEZ MD Jun 09, 2016 14:53
[2016-06-09] MEDS ORDERED: SUMATRIPTAN 50 MG TAB PO PRN (15:00)
[2016-06-09] MEDS: CITALOPRAM 20 MG TAB PO SCH (17:51)
[2016-06-09 20:42] VITALS: BP 158/84; RESP 16
[2016-06-09] MEDS: LEVOFLOXACIN 500MG/D5W (PMX) 100 ML IVPB SCH (22:18)
[2016-06-10] MEDS: ALBUTEROL/IPRATROPIUM (NEB) 3 ML AMP HHN SCH ×6 (00:21→20:37)
[2016-06-10] MEDS: morphine 2 MG INJ IV PRN (04:42)
[2016-06-10] MEDS: METHYLPREDNISOLONE 125 MG INJ IV SCH (05:11)
[2016-06-10 08:13] VITALS: BP 156/80; RESP 18
[2016-06-10] MEDS: HYDROCODONE/APAP (10/325) TAB PO PRN ×3 (08:45→23:47)
[2016-06-10] MEDS: ASPIRIN 81 MG TAB PO SCH (08:45)
[2016-06-10] MEDS: CITALOPRAM 20 MG TAB PO SCH (08:45)
[2016-06-10] MEDS: FAMOTIDINE 20 MG TAB PO SCH ×2 (08:45→20:40)
[2016-06-10] MEDS: ENOXAPARIN 40 MG/0.4 ML SYG SC SCH (08:47)
--- NOTE | 2016-06-10 11:24 | PN ---
Date/Time of Note Date/Time of Note DATE: 06/10/16 TIME: 11:23 Assessment/Plan VTE Prophylaxis VTE Prophylaxis Intervention: LMWH Lines/Catheters [facility] [place] Urinary Cath still in place: No Assessment/Plan Assessment/Plan 1. COPD exacerbation, slowly improving, neb/levaquin/SoluMedro/O2, decrease soluMedrol, consider home tomorrow 2 Respiratory failure due to COPD, O2 and Nebulizer 3. Migraines - imitrex prn 4. GI ppx - pepcid 5. DVT ppx - lovenox Subjective 24 Hr Interval Summary Free Text/Dictation feels better, still weak, on 3 l/min O2 Exam/Review of Systems Vital Signs Vitals Vital Signs Date Time Temp Pulse Resp B/P Pulse Ox O2 Delivery O2 Flow Rate FiO2 06/10/16 09:09 Nasal Cannula 3.0 06/10/16 08:13 97.7 90 18 156/80 97 Intake and Output 06/09/16 06/09/16 06/10/16 15:00 23:00 07:00 Intake Total 2040 ml 780 ml Balance 2040 ml 780 ml Exam Constitutional: alert, oriented, well developed Psych: nl mood/affect, no complaints Head: atraumatic, normocephalic Eyes: EOMI, PERRL, nl conjunctiva, nl lids ENMT: nl external ears & nose, nl lips & teeth, nl nasal mucosa & septum Neck: non-tender, supple Respiratory: diminished breath sounds, wheezing, No congested cough, No crackles/rales, No intercostal retraction, No labored breathing, No other, No respirations, No tactile fremitus Cardiovascular: nl pulses, regular rate and rhythm, No S3, No S4, No bruits, No diastolic murmur, No edema, No gallop, No irregular rhythm, No jugular venous distention (JVD), No murmurs/extra sounds, No other, No rub, No systolic murmur Gastrointestinal: nl liver, spleen, non-tender, soft, No ascites, No bowel sounds, No distended, No firm, No hepatomegaly, No mass , No other, No rebound or guarding, No splenomegaly, No surgical scars, No tender Musculoskeletal: nl extremities to inspection Extremities: normal pulses, No calf tenderness, No clubbing, No cyanosis, No edema, No other, No palpable cord, No pitting pedal edema, No tenderness Neurological: BUSINESS RELATIONS MANAGER II-XII intact, nl mental status, nl speech, nl strength Skin: nl turgor Lymph: nl lymph nodes Results Result Diagram: 06/08/16 0555 06/08/16 0555 Medications Medications Current Medications Lorazepam (Ativan) 0.5 mg Q6H PRN IV ANXIETY Last administered on 06/09/16 19: 28; Admin Dose 0.5 MG; Start 06/07/16 at 23:00 Ondansetron HCl (Zofran Inj) 4 mg Q6H PRN IV NAUSEA AND/OR VOMITING; Start at 23:00 Methylprednisolone Sodium Succinate (Solu-Medrol) 60 mg Q6 IV Last administered on 06/10/16 05:11; Admin Dose 60 MG; Start 06/08/16 at 00:00 Nitroglycerin (Nitroglycerin (Sl Tab) 0.4 Mg) 1 tab Q5M PRN SL CHEST PAIN; Start 06/07/16 at 23:00 Acetaminophen (Tylenol Tab) 650 mg Q6H PRN PO PAIN LEVEL 1-3 OR FEVER Last administered on 06/08/16 08:44; Admin Dose 650 MG; Start 06/07/16 at 23:00 Morphine Sulfate (morphine) 2 mg Q4H PRN IV PAIN LEVEL 7-10 Last administered on 06/10/16 04:42; Admin Dose 2 MG; Start 06/07/16 at 23:00 Docusate Sodium (Colace) 100 mg Q12H PRN PO CONSTIPATION; Start 06/07/16 at 23: 00 Famotidine (Pepcid) 20 mg Q12 PO Last administered on 06/10/16 08:45; Admin Dose 20 MG; Start 06/08/16 at 09:00 Enoxaparin Sodium 40 mg 40 mg DAILY SC Last administered on 06/10/16 08:47; Admin Dose 40 MG; Start 06/08/16 at 09:00 Levofloxacin/ Dextrose (Levaquin 500mg/ D5W 100 ml (Pmx)) 100 ml @ 100 mls/hr Q24H IVPB Last administered on 06/09/16 22:18; Admin Dose 100 MLS/HR; Start at 23:00 Aspirin (Aspirin) 40 mg DAILY PO Last administered on 06/10/16 08:45; Admin Dose 40 MG; Start 06/09/16 at 09:00 Acetaminophen/ Hydrocodone Bitart ([place] (10/325)) 1 tab Q4H PRN PO PAIN Last administered on 06/10/16 08:45; Admin Dose 1 TAB; Start 06/08/16 at 12:00 Sumatriptan Succinate (Imitrex) 100 mg DAILY PRN PO HEADACHE Last administered on 06/09/16 15:53; Admin Dose 100 MG; Start 06/09/16 at 15:00 Citalopram Hydrobromide (Celexa) 10 mg DAILY PO Last administered on 06/10/16 08:45; Admin Dose 10 MG; Start 06/09/16 at 16:30 BETH HERNADEZ MD Jun 10, 2016 11:24
--- NOTE | 2016-06-10 11:39 | PN ---
DATE: 06/10/2016 SUBJECTIVE: Patient Jonh is stable this morning, has mild shortness of breath on exertion with mi ld hypoxemia. PHYSICAL EXAMINATION: VITAL SIGNS: Temperature 97, pulse 90, blood pressure 156/80, O2 saturation 96% on 3 L nasal cannul a. NECK: Supple. No JVD or lymphadenopathy. CARDIAC: S1, S2, no added sounds or murmurs. CHEST: Diminished air entry bilaterally with expiratory wheezes. ABDOMEN: Soft, nontender. No guarding or rebound. EXTREMITIES: No cyanosis, clubbing, edema. NEUROLOGIC: Grossly intact. No focal deficits. LABORATORY DATA: White count 9.7, hemoglobin 13.7, platelets 136. BUN 15, creatinine 0.8. Chest x -ray shows mild left lower lobe atelectasis. IMPRESSION AND PLAN: 1. Acute on chronic hypoxemic respiratory failure. 2. Chronic hypercapnic respiratory failure, pending home noninvasive positive pressure ventilation. 3. History of migraines. 4. Underlying history of chronic obstructive pulmonary disease. PLAN: 1. Continue bronchodilators. 2. Supplemental O2. 3. Continue steroids. 4. DVT and GI prophylaxis. Anticipate discharge hopefully tomorrow with home BiPAP set [facility]. Dictated By: TANK PATEL/CRISTINA Conf#: [id number] DID#: [id number]
[2016-06-10] MEDS ORDERED: METHYLPREDNISOLONE 125 MG INJ IV SCH (12:00)
[2016-06-10] MEDS: METHYLPREDNISOLONE 40 MG INJ IV SCH ×3 (12:38→23:19)
[2016-06-10] MEDS: LORAZEPAM 2 MG INJ IV PRN ×2 (12:38→20:43)
[2016-06-10] MEDS: LEVOFLOXACIN 500 MG TAB PO SCH (18:08)
[2016-06-10 20:55] VITALS: BP 154/75; RESP 20
[2016-06-11] MEDS: ALBUTEROL/IPRATROPIUM (NEB) 3 ML AMP HHN SCH ×6 (00:11→20:21)
[2016-06-11] MEDS: METHYLPREDNISOLONE 40 MG INJ IV SCH ×4 (05:18→23:49)
[2016-06-11] MEDS: LORAZEPAM 2 MG INJ IV PRN ×3 (05:19→21:05)
[2016-06-11] MEDS: LEVOFLOXACIN 500 MG TAB PO SCH (05:19)
[2016-06-11 05:35] LABS: ADD SCAN DIFF NO
[2016-06-11 06:10] LABS: ABNORMAL IP MESSAGE 1; BASOPHILS % 0.2 % (0.0-2.0); HEMATOCRIT 45.8 % (42.0-52.0); HEMOGLOBIN 15.1 g/dl (14.0-18.0); LYMPHOCYTES # 0.6 10^3/ul (0.8-2.9); LYMPHOCYTES % 3.7 % (15.0-51.0); MEAN CORPUSCULAR VOLUME 91.1 fl (82.0-101.0); MEAN PLATELET VOLUME 9.7 fl (7.4-10.4); MONOCYTE # 0.5 10^3/ul (0.3-0.9); MONOCYTES % 3.1 % (0.0-11.0); NEUTROPHIL # 14.4 10^3/ul (1.6-7.5); NEUTROPHILS % 91.9 % (39.0-77.0); PLATELET COUNT 185 10^3/UL (140-415); RED BLOOD COUNT 5.03 10^6/ul (4.70-6.10); RED CELL DISTRIBUTION WIDTH 13.9 % (11.5-14.5); WHITE BLOOD COUNT 15.7 10^3/ul (4.8-10.8)
[2016-06-11 06:20] LABS: POTASSIUM 4.6 mmol/L (3.5-5.1)
[2016-06-11 06:22] LABS: CREATININE 0.77 mg/dl (0.61-1.24)
[2016-06-11 06:23] LABS: CALCIUM 9.5 mg/dl (8.4-10.2)
[2016-06-11 06:28] LABS: AADO2 Arterial 41.4 mmHg (7.0-24.0); Allen Test ACCEPTAB; Arterial Base Excess 5.9 mmol/L (-3.0-3); Arterial COHb 0.2 % (0.0-3.0); Arterial Fraction of Oxyhgb 89.2 % (93.0-99.0); Arterial HCO3 30.6 mmol/L (22.0-26.0); Arterial MetHb 0.3 % (0.0-1.5); Arterial Total Hemglobin 15.1 g/dl (12.0-18.0); MODE ROOM AIR
[2016-06-11 07:35] VITALS: BP 160/100; RESP 20
[2016-06-11] MEDS: FAMOTIDINE 20 MG TAB PO SCH ×2 (08:22→20:53)
[2016-06-11] MEDS: CITALOPRAM 20 MG TAB PO SCH (08:22)
[2016-06-11] MEDS: ASPIRIN 81 MG TAB PO SCH (08:22)
[2016-06-11] MEDS: morphine 2 MG INJ IV PRN ×2 (08:23→18:26)
[2016-06-11] MEDS: ENOXAPARIN 40 MG/0.4 ML SYG SC SCH (08:25)
--- NOTE | 2016-06-11 13:17 | PN ---
Date/Time of Note Date/Time of Note DATE: 06/11/16 TIME: 13:14 Assessment/Plan VTE Prophylaxis VTE Prophylaxis Intervention: heparin Lines/Catheters IV C[facility]ter Type (from [facility] Saline Lock Urinary Cath still in place: No Assessment/Plan Assessment/Plan 1. COPD exacerbation, slowly improving, neb/levaquin/SoluMedro/O2 2 Respiratory failure due to COPD, O2 and Nebulizer 3. Migraines - imitrex prn 4. Major depression, on celexa 5. GI ppx - pepcid 6. DVT ppx - lovenox Subjective 24 Hr Interval Summary Free Text/Dictation patien t states he still has SOB when he goes to bathroom, weak Exam/Review of Systems Vital Signs Vitals Vital Signs Date Time Temp Pulse Resp B/P Pulse Ox O2 Delivery O2 Flow Rate FiO2 06/11/16 12:07 Nasal Cannula 3.0 06/11/16 09:50 98 20 94 06/11/16 07:35 97.6 160/100 Intake and Output 06/10/16 06/10/16 06/11/16 15:00 23:00 07:00 Intake Total 1100 ml 500 ml Output Total 1000 ml Balance 100 ml 500 ml Exam Constitutional: alert, oriented, well developed Psych: nl mood/affect, no complaints Head: atraumatic, normocephalic Eyes: EOMI, nl conjunctiva, nl lids ENMT: nl external ears & nose, nl lips & teeth, nl nasal mucosa & septum Neck: non-tender, supple Respiratory: diminished breath sounds Cardiovascular: nl pulses, regular rate and rhythm, No S3, No S4, No bruits, No diastolic murmur, No edema, No gallop, No irregular rhythm, No jugular venous distention (JVD), No murmurs/extra sounds, No other, No rub, No systolic murmur Gastrointestinal: nl liver, spleen, non-tender, No ascites, No bowel sounds, No distended, No firm, No hepatomegaly, No mass , No other, No rebound or guarding, No soft, No splenomegaly, No surgical scars , No tender Musculoskeletal: nl extremities to inspection Extremities: normal pulses, No calf tenderness, No clubbing, No cyanosis, No edema, No other, No palpable cord, No pitting pedal edema, No tenderness Neurological: MENTAL HEALTH PROGRAM MANAGER II-XII intact, nl mental status, nl speech, nl strength Skin: nl turgor Lymph: nl lymph nodes Results Result Diagram: 06/11/16 0510 06/11/16 0510 Results 24 hrs Laboratory Tests Test 06/11/16 05:10 06/11/16 06:00 Anion Gap 17 H Basophils # 0.0 Basophils % 0.2 Blood Urea Nitrogen 25 H Calcium Level 9.5 Carbon Dioxide Level 30 Chloride Level 104 Creatinine 0.77 Eosinophils # 0.0 Eosinophils % 0.0 Glucose Level 190 Hematocrit 45.8 Hemoglobin 15.1 Lymphocytes # 0.6 L Lymphocytes % 3.7 L Mean Corpuscular Hemoglobin 30.0 Mean Corpuscular Hemoglobin Concent 33.0 Mean Corpuscular Volume 91.1 Mean Platelet Volume 9.7 Monocytes # 0.5 Monocytes % 3.1 Neutrophils # 14.4 H Neutrophils % 91.9 H Nucleated Red Blood Cells # 0.0 Nucleated Red Blood Cells % 0.0 Platelet Count 185 # Potassium Level 4.6 Red Blood Count 5.03 Red Cell Distribution Width 13.9 Sodium Level 146 H White Blood Count 15.7 #H Arterial Blood HCO3 30.6 H Arterial Blood Base Excess 5.9 H Arterial Blood Oxygen Saturation 89.6 L Dillon Test ACCEPTAB Arterial Blood Gas Puncture Site Left Radial Arterial Blood Carboxyhemoglobin 0.2 Arterial Blood Date Drawn 06/11/2016 6:19:16 AM Arterial Blood Methemoglobin 0.3 Arterial Blood pCO2 (Temp correct) 44.2 Arterial Blood pH (Temp corrected) 7.458 H Arterial Blood pO2 (Temp corrected) 55.4 L Blood Gas A-a O2 Differential 41.4 H Blood Gas Modality ROOM AIR Blood Gas Notified Time 06/11/2016 6:27:59 AM Blood Gas Notified Whom MM Blood Gas Specimen Source Blood arterial Blood Gas Temperature 37.0 FiO2 21.0 Oxyhemoglobin Percent 89.2 L Total Hemoglobin 15.1 Medications Medications Current Medications Lorazepam (Ativan) 0.5 mg Q6H PRN IV ANXIETY Last administered on 06/11/16t 11: 14; Admin Dose 0.5 MG; Start 06/07/16 at 23:00 Ondansetron HCl (Zofran Inj) 4 mg Q6H PRN IV NAUSEA AND/OR VOMITING; Start at 23:00 Nitroglycerin (Nitroglycerin (Sl Tab) 0.4 Mg) 1 tab Q5M PRN SL CHEST PAIN; Start 06/07/16 at 23:00 Acetaminophen (Tylenol Tab) 650 mg Q6H PRN PO PAIN LEVEL 1-3 OR FEVER Last administered on 06/08/16 08:44; Admin Dose 650 MG; Start 06/07/16 at 23:00 Morphine Sulfate (morphine) 2 mg Q4H PRN IV PAIN LEVEL 7-10 Last administered on 06/11/16 08:23; Admin Dose 2 MG; Start 06/07/16 at 23:00 Docusate Sodium (Colace) 100 mg Q12H PRN PO CONSTIPATION; Start 06/07/16 at 23: 00 Famotidine (Pepcid) 20 mg Q12 PO Last administered on 06/11/16 08:22; Admin Dose 20 MG; Start 06/08/16 at 09:00 Enoxaparin Sodium (Lovenox) 40 mg DAILY SC Last administered on 06/11/16 08:25 ; Admin Dose 40 MG; Start 06/08/16 at 09:00 Aspirin (Aspirin) 40 mg DAILY PO Last administered on 06/11/16 08:22; Admin Dose 40 MG; Start 06/09/16 at 09:00 Acetaminophen/ Hydrocodone Bitart ([place] (10/325)) 1 tab Q4H PRN PO PAIN Last administered on 06/10/16 23:47; Admin Dose 1 TAB; Start 06/08/16 at 12:00 Sumatriptan Succinate (Imitrex) 100 mg DAILY PRN PO HEADACHE Last administered on 06/09/16 15:53; Admin Dose 100 MG; Start 06/09/16 at 15:00 Citalopram Hydrobromide (Celexa) 20 mg DAILY PO Last administered on 06/11/16 08:22; Admin Dose 20 MG; Start 06/11/16 at 09:00 Methylprednisolone Sodium Succinate (Solu-Medrol) 40 mg Q6 IV Last administered on 06/11/16 11:14; Admin Dose 40 MG; Start 06/10/16 at 12:00 Levofloxacin (Levaquin) 500 mg DAILY@06 PO Last administered on 06/11/16 05:19 ; Admin Dose 500 MG; Start 06/10/16 at 18:00 BETH HERNADEZ MD Jun 11, 2016 13:16
--- NOTE | 2016-06-11 13:34 | PN ---
DATE: 06/11/2016 SUBJECTIVE: Mr. Pham is stable this morning. VITAL SIGNS: Temperature 97, pulse 98, blood pressure 160/100, O2 saturation 96% on 3 liters. NECK: Supple. No JVD or lymphadenopathy. CARDIAC: S1, S2. No added sounds or murmurs. CHEST: Diminished air entry bilaterally. ABDOMEN: Soft, nontender. No guarding or rebound. EXTREMITIES: No cyanosis, clubbing, edema. NEUROLOGIC: Generalized weakness. LABORATORY DATA: White count 15.7, hemoglobin 15.1, sodium 146. ABG: PaO2 was 55 on room air. IMPRESSION: 1. Acute on chronic hypoxemic respiratory failure. 2. History of . 3. History of chronic obstructive pulmonary disease. PLAN: 1. Ambulate and establish exertional oxygen requirements. 2. Continue nocturnal noninvasive positive pressure ventilation set up for home. 3. Anticipate discharge in the next 24 to 48 hours. Dictated By: TANK PATEL/CRISTINA Conf#: [id number] DID#: [id number]
[2016-06-11 20:45] VITALS: BP 172/94; RESP 21
[2016-06-11 21:45] VITALS: BP 152/85
[2016-06-12] MEDS: HYDROCODONE/APAP (10/325) TAB PO PRN ×3 (00:44→18:43)
[2016-06-12] MEDS: ALBUTEROL/IPRATROPIUM (NEB) 3 ML AMP HHN SCH ×7 (01:00→20:01)
[2016-06-12] MEDS: METHYLPREDNISOLONE 40 MG INJ IV SCH ×3 (06:01→17:47)
[2016-06-12] MEDS: LEVOFLOXACIN 500 MG TAB PO SCH (06:02)
[2016-06-12] MEDS: LORAZEPAM 2 MG INJ IV PRN ×3 (06:20→18:43)
[2016-06-12 07:35] VITALS: BP 187/114; RESP 18
[2016-06-12] MEDS: ENOXAPARIN 40 MG/0.4 ML SYG SC SCH (08:48)
[2016-06-12] MEDS: ASPIRIN 81 MG TAB PO SCH (08:48)
[2016-06-12] MEDS: clonAZEPAM 0.5 MG TAB PO PRN ×2 (08:49→20:47)
[2016-06-12] MEDS: FAMOTIDINE 20 MG TAB PO SCH ×2 (08:50→20:47)
[2016-06-12] MEDS: LOPERAMIDE 2 MG CAP PO PRN (08:50)
[2016-06-12] MEDS: CITALOPRAM 20 MG TAB PO SCH (08:50)
[2016-06-12 10:33] VITALS: BP 156/91
[2016-06-12] MEDS: FUROSEMIDE 40 MG INJ IV SCH (10:37)
--- NOTE | 2016-06-12 10:45 | PN ---
DATE: 06/12/2016 FOLLOWUP NOTE SUBJECTIVE: The patient is stable this morning. He was more anxious earlier and required anxiolytic s. He states his overall condition has improved significantly, including his blood pressure. PHYSICAL EXAMINATION: VITAL SIGNS: Temperature 98, pulse is 100, blood pressure 180/100, O2 saturation 96% on 2 L nasal c annula. NECK: Supple. No JVD or lymphadenopathy. CARDIAC EXAM: S1, S2. No added sounds or murmurs. CHEST: Diminished air entry bilaterally. ABDOMEN: Soft, nontender. No guarding or rebound. EXTREMITIES: No cyanosis, clubbing or edema. NEUROLOGIC: Grossly intact. LABORATORY DATA: White count 15.7, hemoglobin 15.1. Chemistry within normal limits. ABG, PaO2 was 55 on room air. IMPRESSION AND PLAN: 1. Chronic obstructive pulmonary disease, with acute exacerbation. 2. Anxiety, likely secondary to the addition of steroids. 3. History of valvular heart disease per patient, diagnosed on recent admission to a hospital in [facility]. The patient will require: 1. Continued steroids. 2. Bronchodilators. 3. Addition of Lasix. 4. DVT and GI prophylaxis. 5. Currently being ruled out for C. difficile colitis, given ongoing diarrhea. Dictated By: TANK PATEL/CRISTINA Conf#: [id number] DID#: [id number]
--- NOTE | 2016-06-12 12:35 | PN ---
Date/Time of Note Date/Time of Note DATE: 06/12/16 TIME: 12:26 Assessment/Plan VTE Prophylaxis VTE Prophylaxis Intervention: LMWH Lines/Catheters [facility] Saline Lock Urinary Cath still in place: No Assessment/Plan Assessment/Plan 1. COPD exacerbation, slowly improving, neb/levaquin/SoluMedro/O2 2 Respiratory failure due to COPD, O2 and Nebulizer 3. Migraines - imitrex prn 4. Major depression, on celexa 5. Anxiety, on celexa and klonopin 6. GI ppx - pepcid 7. DVT ppx - lovenox Subjective 24 Hr Interval Summary Free Text/Dictation Anxiety spell this morning with SOB, anxious and high blood pressure. Symptoms improved with klonopin Exam/Review of Systems Vital Signs Vitals Vital Signs Date Time Temp Pulse Resp B/P Pulse Ox O2 Delivery O2 Flow Rate FiO2 06/12/16 10:33 156/91 91 Nasal Cannula 4.0 06/12/16 08:15 100 20 06/12/16 07:35 98.2 Intake and Output 06/11/16 06/11/16 06/12/16 15:00 23:00 07:00 Intake Total 960 ml 480 ml Balance 960 ml 480 ml Exam Constitutional: alert, oriented, well developed Head: atraumatic, normocephalic Eyes: EOMI, PERRL, nl conjunctiva, nl lids ENMT: nl external ears & nose, nl lips & teeth, nl nasal mucosa & septum Neck: supple Respiratory: wheezing Cardiovascular: nl pulses, regular rate and rhythm, No S3, No S4, No bruits, No diastolic murmur, No edema, No gallop, No irregular rhythm, No jugular venous distention (JVD), No murmurs/extra sounds, No other, No rub, No systolic murmur Gastrointestinal: nl liver, spleen, non-tender, soft, No ascites, No bowel sounds, No distended, No firm, No hepatomegaly, No mass , No other, No rebound or guarding, No splenomegaly, No surgical scars, No tender Musculoskeletal: nl extremities to inspection Extremities: normal pulses, No calf tenderness, No clubbing, No cyanosis, No edema, No other, No palpable cord, No pitting pedal edema, No tenderness Neurological: DIESEL POWER MECHANIC II-XII intact, nl mental status, nl speech, nl strength Skin: nl turgor Results Result Diagram: 06/11/16 0510 06/11/16 0510 Medications Medications Current Medications Lorazepam (Ativan) 0.5 mg Q6H PRN IV ANXIETY Last administered on 06/12/16 06: 20; Admin Dose 0.5 MG; Start 06/07/16 at 23:00 Ondansetron HCl (Zofran Inj) 4 mg Q6H PRN IV NAUSEA AND/OR VOMITING; Start at 23:00 Nitroglycerin (Nitroglycerin (Sl Tab) 0.4 Mg) 1 tab Q5M PRN SL CHEST PAIN; Start 06/07/16 at 23:00 Acetaminophen (Tylenol Tab) 650 mg Q6H PRN PO PAIN LEVEL 1-3 OR FEVER Last administered on 06/08/16 08:44; Admin Dose 650 MG; Start 06/07/16 at 23:00 Morphine Sulfate (morphine) 2 mg Q4H PRN IV PAIN LEVEL 7-10 Last administered on 06/11/16 18:26; Admin Dose 2 MG; Start 06/07/16 at 23:00 Docusate Sodium (Colace) 100 mg Q12H PRN PO CONSTIPATION; Start 06/07/16 at 23: 00 Famotidine (Pepcid) 20 mg Q12 PO Last administered on 06/12/16 08:50; Admin Dose 20 MG; Start 06/08/16 at 09:00 Enoxaparin Sodium (Lovenox) 40 mg DAILY SC Last administered on 06/12/16 08:48 ; Admin Dose 40 MG; Start 06/08/16 at 09:00 Aspirin (Aspirin) 40 mg DAILY PO Last administered on 06/12/16 08:48; Admin Dose 40 MG; Start 06/09/16 at 09:00 Acetaminophen/ Hydrocodone Bitart ([place] (10/325)) 1 tab Q4H PRN PO PAIN Last administered on 06/12/16 08:52; Admin Dose 1 TAB; Start 06/08/16 at 12:00 Sumatriptan Succinate (Imitrex) 100 mg DAILY PRN PO HEADACHE Last administered on 06/09/16 15:53; Admin Dose 100 MG; Start 06/09/16 at 15:00 Citalopram Hydrobromide (Celexa) 20 mg DAILY PO Last administered on 06/12/16 08:50; Admin Dose 20 MG; Start 06/11/16 at 09:00 Methylprednisolone Sodium Succinate (Solu-Medrol) 40 mg Q6 IV Last administered on 06/12/16 06:01; Admin Dose 40 MG; Start 06/10/16 at 12:00 Levofloxacin (Levaquin) 500 mg DAILY@06 PO Last administered on 06/12/16 06:02 ; Admin Dose 500 MG; Start 06/10/16 at 18:00 Clonazepam (Klonopin) 2 mg BID PRN PO ANXIETY Last administered on 06/12/16 08: 49; Admin Dose 2 MG; Start 06/12/16 at 08:30 Loperamide HCl (Imodium Cap) 2 mg QID PRN PO DIARRHEA Last administered on 08:50; Admin Dose 2 MG; Start 06/12/16 at 08:30 Clonidine (Catapres) 0.1 mg Q6H PRN PO ELEVATED BLOOD PRESSURE Last administered on 06/12/16 08:50; Admin Dose 0.1 MG; Start 06/12/16 at 08:30 Furosemide (Lasix) 40 mg DAILY@06 IV Last administered on 06/12/16 10:37; Admin Dose 40 MG; Start 06/12/16 at 10:30 BETH HERNADEZ MD Jun 12, 2016 12:35
[2016-06-12 20:37] VITALS: BP 139/90; RESP 18
[2016-06-13] MEDS: ALBUTEROL/IPRATROPIUM (NEB) 3 ML AMP HHN SCH ×6 (02:00→20:20)
[2016-06-13] MEDS: FUROSEMIDE 40 MG INJ IV SCH (04:32)
[2016-06-13] MEDS: LEVOFLOXACIN 500 MG TAB PO SCH (04:32)
[2016-06-13] MEDS: METHYLPREDNISOLONE 40 MG INJ IV SCH ×2 (04:32)
[2016-06-13 06:05] LABS: ADD SCAN DIFF NO
[2016-06-13] MEDS: HYDROCODONE/APAP (10/325) TAB PO PRN ×4 (06:18→22:28)
[2016-06-13 06:25] LABS: BASOPHILS % 0.2 % (0.0-2.0); HEMATOCRIT 45.5 % (42.0-52.0); HEMOGLOBIN 15.3 g/dl (14.0-18.0); LYMPHOCYTES # 0.9 10^3/ul (0.8-2.9); LYMPHOCYTES % 7.8 % (15.0-51.0); MEAN CORPUSCULAR HEMOGLOBIN 30.1 pg (29.0-33.0); MEAN CORPUSCULAR HGB CONC 33.6 g/dl (32.0-37.0); MEAN CORPUSCULAR VOLUME 89.6 fl (82.0-101.0); MEAN PLATELET VOLUME 9.5 fl (7.4-10.4); MONOCYTES % 8.5 % (0.0-11.0); NEUTROPHIL # 9.4 10^3/ul (1.6-7.5); NEUTROPHILS % 81.4 % (39.0-77.0); PLATELET COUNT 189 10^3/UL (140-415); RED BLOOD COUNT 5.08 10^6/ul (4.70-6.10); RED CELL DISTRIBUTION WIDTH 13.6 % (11.5-14.5); WHITE BLOOD COUNT 11.5 10^3/ul (4.8-10.8)
[2016-06-13 06:46] LABS: POTASSIUM 4.1 mmol/L (3.5-5.1)
[2016-06-13 06:48] LABS: CREATININE 0.76 mg/dl (0.61-1.24)
[2016-06-13 06:49] LABS: CALCIUM 8.9 mg/dl (8.4-10.2); MAGNESIUM 2.3 mg/dl (1.7-2.5); PHOSPHORUS 4.1 mg/dl (2.5-4.9)
[2016-06-13] MEDS ORDERED: MONTELUKAST 10 MG TAB PO ONE (08:00)
[2016-06-13 08:01] VITALS: BP 158/102; RESP 23
--- NOTE | 2016-06-13 08:11 | PN ---
Date/Time of Note Date/Time of Note DATE: 06/13/16 TIME: 08:06 Assessment/Plan VTE Prophylaxis VTE Prophylaxis Intervention: LMWH Lines/Catheters [facility] Saline Lock Urinary Cath still in place: No Assessment/Plan Problems: (1) COPD (chronic obstructive pulmonary disease) Status: Chronic Comment: His acute exacerbation settling down. Please note that it is possible that a portion of this exacerbation is due to his aortic valvular disease. Regardless he can be returned to his outpatient regimen we can start tapering the steroids and doing that as oral steroids. In addition is never been tried on Montella cast or theophylline preparation. He was given Daliresp which aggravated his anxiety disorder he has not on that medicine presently Qualifiers: COPD type: COPD with acute exacerbation Qualified Code: J44.1 - Chronic obstructive pulmonary disease with acute exacerbation (2) Hypokalemia Status: Resolved Comment: Resolved (3) Hypertension Status: Acute Comment: Adequately controlled. Please note will need to be very cautious with his medication regimen given the interplay between the COPD and aortic stenosis Qualifiers: Hypertension type: essential hypertension Qualified Code: I10 - Essential hypertension (4) Osteoarthritis cervical spine Status: Chronic Comment: He is status post surgery for this. He reports that this is been a powerful trigger of his migraines over the last 6 years. 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 Qualifiers: Spinal osteoarthritis complication: without myelopathy or radiculopathy Qualified Code: M47.816 - Spondylosis of lumbar region without myelopathy or radiculopathy (6) Migraine syndrome Status: Chronic Comment: While he is adequately treated with sumatriptan for immediate relief he has never been on prophylactic therapy. Given his body habitus topiramate would be an appropriate start here. If this is unsuccessful in the usage of a TCA medicine with the least anticholinergic effect possible would be the next step, however I believe that this will work quite nicely (7) Major depressive disorder, recurrent episode with anxious distress Status: Chronic Comment: Addition of topiramate should offer some benefit (8) Aortic stenosis, severe Status: Chronic Comment: This is being managed by his outpatient team of physicians. Presently it is not affecting the admission (9) Mixed hyperlipidemia Status: Chronic Comment: Noted. This gentleman undoubtedly has insulin resistance syndrome which with the steroids is now showing some modest degree of hyperglycemia. Weight loss and getting him off of the steroids would be beneficial (10) Steroid-induced hyperglycemia Status: Acute Comment: He has insulin resistance syndrome most likely. The steroids are aggravating this is time to start tapering the Subjective 24 Hr Interval Summary Free Text/Dictation Nicolas middle-aged male able to converse in full sentences Constitutional: no complaints (Denies fever chills or sweats) Respiratory: shortness of breath (Shortness of breath is improving), wheezing ( Wheezing is improving) Cardiovascular: no complaints (Denies chest pain or palpitations denies syncope ) Gastrointestinal: no complaints Genitourinary: no complaints Exam/Review of Systems Vital Signs Vitals Vital Signs Date Time Temp Pulse Resp B/P Pulse Ox O2 Delivery O2 Flow Rate FiO2 06/13/16 08:01 98.3 90 23 158/102 94 06/13/16 05:28 2.0 06/12/16 20:03 Nasal Cannula Intake and Output 06/12/16 06/12/16 06/13/16 15:00 23:00 07:00 Intake Total 1400 ml 360 ml Output Total 800 ml Balance 1400 ml -440 ml Exam Constitutional: alert, oriented Respiratory: diminished breath sounds (Increased AP diameter decreased IT ratio ), wheezing (Wheezing especially on 4 cassettes expiratory maneuver) Cardiovascular: murmurs/extra sounds (Left upper sternal border murmur that radiates to the carotids rapid upstroke), regular rate and rhythm Gastrointestinal: nl liver, spleen, non-tender, soft Results Result Diagram: 06/13/16 0550 06/13/16 0550 Results 24 hrs Laboratory Tests Test 06/13/16 05:50 Anion Gap 15 Basophils # 0.0 Basophils % 0.2 Blood Urea Nitrogen 28 H Calcium Level 8.9 Carbon Dioxide Level 31 Chloride Level 100 Creatinine 0.76 Eosinophils # 0.0 Eosinophils % 0.0 Glucose Level 164 Hematocrit 45.5 Hemoglobin 15.3 Lymphocytes # 0.9 Lymphocytes % 7.8 L Magnesium Level 2.3 Mean Corpuscular Hemoglobin 30.1 Mean Corpuscular Hemoglobin Concent 33.6 Mean Corpuscular Volume 89.6 Mean Platelet Volume 9.5 Monocytes # 1.0 H Monocytes % 8.5 Neutrophils # 9.4 H Neutrophils % 81.4 H Nucleated Red Blood Cells # 0.0 Nucleated Red Blood Cells % 0.0 Phosphorus Level 4.1 Platelet Count 189 Potassium Level 4.1 Red Blood Count 5.08 Red Cell Distribution Width 13.6 Sodium Level 142 White Blood Count 11.5 #H Medications Medications Current Medications Lorazepam (Ativan) 0.5 mg Q6H PRN IV ANXIETY Last administered on 06/12/16 18: 43; Admin Dose 0.5 MG; Start 06/07/16 at 23:00 Ondansetron HCl (Zofran Inj) 4 mg Q6H PRN IV NAUSEA AND/OR VOMITING; Start at 23:00 Nitroglycerin (Nitroglycerin (Sl Tab) 0.4 Mg) 1 tab Q5M PRN SL CHEST PAIN; Start 06/07/16 at 23:00 Acetaminophen (Tylenol Tab) 650 mg Q6H PRN PO PAIN LEVEL 1-3 OR FEVER Last administered on 06/08/16 08:44; Admin Dose 650 MG; Start 06/07/16 at 23:00 Morphine Sulfate (morphine) 2 mg Q4H PRN IV PAIN LEVEL 7-10 Last administered on 06/11/16 18:26; Admin Dose 2 MG; Start 06/07/16 at 23:00 Docusate Sodium (Colace) 100 mg Q12H PRN PO CONSTIPATION; Start 06/07/16 at 23: 00 Famotidine (Pepcid) 20 mg Q12 PO Last administered on 06/12/16 20:47; Admin Dose 20 MG; Start 06/08/16 at 09:00 Enoxaparin Sodium (Lovenox) 40 mg DAILY SC Last administered on 06/12/16 08:48 ; Admin Dose 40 MG; Start 06/08/16 at 09:00 Aspirin (Aspirin) 40 mg DAILY PO Last administered on 06/12/16 08:48; Admin Dose 40 MG; Start 06/09/16 at 09:00 Acetaminophen/ Hydrocodone Bitart ([place] (10/325)) 1 tab Q4H PRN PO PAIN Last administered on 06/13/16 06:18; Admin Dose 1 TAB; Start 06/08/16 at 12:00 Sumatriptan Succinate (Imitrex) 100 mg DAILY PRN PO HEADACHE Last administered on 06/09/16 15:53; Admin Dose 100 MG; Start 06/09/16 at 15:00 Citalopram Hydrobromide (Celexa) 20 mg DAILY PO Last administered on 06/12/16 08:50; Admin Dose 20 MG; Start 06/11/16 at 09:00 Methylprednisolone Sodium Succinate (Solu-Medrol) 40 mg Q6 IV Last administered on 06/13/16 04:32; Admin Dose 40 MG; Start 06/10/16 at 12:00 Levofloxacin (Levaquin) 500 mg DAILY@06 PO Last administered on 06/13/16 04:32 ; Admin Dose 500 MG; Start 06/10/16 at 18:00 Clonazepam (Klonopin) 2 mg BID PRN PO ANXIETY Last administered on 06/12/16 20: 47; Admin Dose 2 MG; Start 06/12/16 at 08:30 Loperamide HCl (Imodium Cap) 2 mg QID PRN PO DIARRHEA Last administered on 08:50; Admin Dose 2 MG; Start 06/12/16 at 08:30 Clonidine (Catapres) 0.1 mg Q6H PRN PO ELEVATED BLOOD PRESSURE Last administered on 06/12/16 08:50; Admin Dose 0.1 MG; Start 06/12/16 at 08:30 Furosemide (Lasix) 40 mg DAILY@06 IV Last administered on 06/13/16 04:32; Admin Dose 40 MG; Start 06/12/16 at 10:30 Salmeterol Xinafoate/ Fluticasone (Advair 250/50 Diskus) 1 inh BID INH ; Start 06/13/16 at 09:00; Status UNV Tiotropium [place] (Spiriva) 1 inh DAILY INH ; Start 06/13/16 at 09:00; Status UNV Topiramate (Topamax) 25 mg BID PO ; Start 06/13/16 at 09:00; Status UNV Montelukast Sodium (Singulair) 10 mg HS PO ; Start 06/13/16 at 21:00; Status UNV Montelukast Sodium (Singulair) 10 mg ONCE ONCE PO ; Start 06/13/16 at 08:00; Stop 06/13/16 at 08:01; Status UNV AIYANA ALY MD Jun 13, 2016 08:11
[2016-06-13] MEDS: FISH OIL 1,000 MG CAP PO SCH ×2 (08:30→20:36)
[2016-06-13] MEDS: ASPIRIN 81 MG TAB PO SCH (08:31)
[2016-06-13] MEDS: CITALOPRAM 20 MG TAB PO SCH (08:31)
[2016-06-13] MEDS: FAMOTIDINE 20 MG TAB PO SCH ×2 (08:31→20:36)
[2016-06-13] MEDS: ENOXAPARIN 40 MG/0.4 ML SYG SC SCH (08:33)
[2016-06-13] MEDS: clonAZEPAM 0.5 MG TAB PO PRN ×2 (08:45→20:35)
[2016-06-13] MEDS ORDERED: predniSONE 10 MG TAB PO SCH (09:00)
[2016-06-13] MEDS: TOPIRAMATE 25 MG TAB PO SCH ×2 (09:24→20:36)
[2016-06-13] MEDS: SALMETEROL/FLUTICASONE 250/50 INHA INH SCH ×2 (09:24→20:35)
[2016-06-13] MEDS: TIOTROPIUM 18 MCG CAPSULE INHA DEV INH SCH (09:24)
[2016-06-13] MEDS: METHYLPREDNISOLONE 4 MG TAB PO SCH ×3 (09:30→17:58)
[2016-06-13 09:39] VITALS: BP 142/98; PULSE 88
[2016-06-13] MEDS: LORAZEPAM 2 MG INJ IV PRN ×2 (11:51→17:59)
[2016-06-13] MEDS: morphine 2 MG INJ IV PRN (14:48)
--- NOTE | 2016-06-13 15:10 | RADRPT ---
PROCEDURE: XR Chest. CLINICAL INDICATION: Shortness of breath. TECHNIQUE: Single frontal view. COMPARISON: 06/07/2016. FINDINGS: The lungs are clear. The heart size is normal. There is calcification in the aorta consistent with atherosclerosis. There is no pleural effusion or pneumothorax. There has been prior left shoulder surgery with hardware noted. IMPRESSION: 1. Clear lungs. 2. Atherosclerosis. 3. Prior left shoulder surgery. RPTAT: QQ .Sukhdeep Arshad MD, MD Date Time Electronically viewed and signed by .Sukhdeep Arshad MD, MD on 06/13/2016 15:10 .R/
--- NOTE | 2016-06-13 17:05 | CONS ---
Date/Time of Note Date/Time of Note DATE: 06/13/16 TIME: 17:03 Consult Date/Type/Reason Admit Date/Time Jun 07, 2016 at 22:21 Initial Consult Date 06/08/16 Type of Consultation: Pulmonary Subjective Currently sleeping. Appears comfortable. Objective Vital Signs Date Time Temp Pulse Resp B/P Pulse Ox O2 Delivery O2 Flow Rate FiO2 06/13/16 16:55 2.0 06/13/16 16:53 84 18 97 Nasal Cannula 06/13/16 09:39 142/98 06/13/16 08:01 98.3 Intake and Output 06/12/16 06/12/16 06/13/16 15:00 23:00 07:00 Intake Total 1400 ml 360 ml Output Total 800 ml Balance 1400 ml -440 ml HEENT: Neck supple; no JVD; no LAD CVS: RRR, S1 and S2 CHEST: Decreased BS b/l ABD: Soft, NT, + BS EXT: No c/c/e Results/Medications Result Diagram: 06/13/16 0550 06/13/16 0550 Results 24 hrs Laboratory Tests Test 06/13/16 05:50 06/13/16 05:58 Anion Gap 15 Basophils # 0.0 Basophils % 0.2 Blood Urea Nitrogen 28 H Calcium Level 8.9 Carbon Dioxide Level 31 Chloride Level 100 Creatinine 0.76 Eosinophils # 0.0 Eosinophils % 0.0 Glucose Level 164 Hematocrit 45.5 Hemoglobin 15.3 Lymphocytes # 0.9 Lymphocytes % 7.8 L Magnesium Level 2.3 Mean Corpuscular Hemoglobin 30.1 Mean Corpuscular Hemoglobin Concent 33.6 Mean Corpuscular Volume 89.6 Mean Platelet Volume 9.5 Monocytes # 1.0 H Monocytes % 8.5 Neutrophils # 9.4 H Neutrophils % 81.4 H Nucleated Red Blood Cells # 0.0 Nucleated Red Blood Cells % 0.0 Phosphorus Level 4.1 Platelet Count 189 Potassium Level 4.1 Red Blood Count 5.08 Red Cell Distribution Width 13.6 Sodium Level 142 White Blood Count 11.5 #H Hepatitis B Surface Antigen NEGATIVE Hepatitis C Antibody REACTIVE H Medications Current Medications Lorazepam (Ativan) 0.5 mg Q6H PRN IV ANXIETY Last administered on 06/13/16t 11: 51; Admin Dose 0.5 MG; Start 06/07/16 at 23:00 Ondansetron HCl (Zofran Inj) 4 mg Q6H PRN IV NAUSEA AND/OR VOMITING; Start at 23:00 Nitroglycerin (Nitroglycerin (Sl Tab) 0.4 Mg) 1 tab Q5M PRN SL CHEST PAIN; Start 06/07/16 at 23:00 Acetaminophen (Tylenol Tab) 650 mg Q6H PRN PO PAIN LEVEL 1-3 OR FEVER Last administered on 06/08/16 08:44; Admin Dose 650 MG; Start 06/07/16 at 23:00 Morphine Sulfate (morphine) 2 mg Q4H PRN IV PAIN LEVEL 7-10 Last administered on 06/13/16 14:48; Admin Dose 2 MG; Start 06/07/16 at 23:00 Docusate Sodium (Colace) 100 mg Q12H PRN PO CONSTIPATION; Start 06/07/16 at 23: 00 Famotidine (Pepcid) 20 mg Q12 PO Last administered on 06/13/16 08:31; Admin Dose 20 MG; Start 06/08/16 at 09:00 Enoxaparin Sodium (Lovenox) 40 mg DAILY SC Last administered on 06/13/16 08:33 ; Admin Dose 40 MG; Start 06/08/16 at 09:00 Aspirin (Aspirin) 40 mg DAILY PO Last administered on 06/13/16 08:31; Admin Dose 40 MG; Start 06/09/16 at 09:00 Acetaminophen/ Hydrocodone Bitart ([place] (10/325)) 1 tab Q4H PRN PO PAIN Last administered on 06/13/16 10:54; Admin Dose 1 TAB; Start 06/08/16 at 12:00 Sumatriptan Succinate (Imitrex) 100 mg DAILY PRN PO HEADACHE Last administered on 06/09/16 15:53; Admin Dose 100 MG; Start 06/09/16 at 15:00 Citalopram Hydrobromide (Celexa) 20 mg DAILY PO Last administered on 06/13/16 08:31; Admin Dose 20 MG; Start 06/11/16 at 09:00 Levofloxacin (Levaquin) 500 mg DAILY@06 PO Last administered on 06/13/16 04:32 ; Admin Dose 500 MG; Start 06/10/16 at 18:00 Loperamide HCl (Imodium Cap) 2 mg QID PRN PO DIARRHEA Last administered on 08:50; Admin Dose 2 MG; Start 06/12/16 at 08:30 Clonidine (Catapres) 0.1 mg Q6H PRN PO ELEVATED BLOOD PRESSURE Last administered on 06/12/16 08:50; Admin Dose 0.1 MG; Start 06/12/16 at 08:30 Furosemide (Lasix) 40 mg DAILY@06 IV Last administered on 06/13/16 04:32; Admin Dose 40 MG; Start 06/12/16 at 10:30 Salmeterol Xinafoate/ Fluticasone (Advair 250/50 Diskus) 1 inh BID INH Last administered on 06/13/16 09:24; Admin Dose 1 INH; Start 06/13/16 at 09:00 Tiotropium [place] (Spiriva) 1 inh DAILY INH Last administered on 06/13/16 09: 24; Admin Dose 1 INH; Start 06/13/16 at 09:00 Topiramate (Topamax) 25 mg BID PO Last administered on 06/13/16 09:24; Admin Dose 25 MG; Start 06/13/16 at 09:00 Montelukast Sodium (Singulair) 10 mg HS PO ; Start 06/13/16 at 21:00 Fish Oil (Fish Oil) 2,000 mg BID PO Last administered on 06/13/16 08:30; Admin Dose 2,000 MG; Start 06/13/16 at 09:00 Clonazepam (Klonopin) 1 mg BID PRN PO ANXIETY Last administered on 06/13/16 08: 45; Admin Dose 1 MG; Start 06/13/16 at 09:00 Methylprednisolone (Medrol) 4 mg QAM PO Last administered on 06/13/16 10:55; Admin Dose 4 MG; Start 06/13/16 at 09:30 Assessment/Plan Additional Assessment/Plan IMPRESSION: 1. COPD exacerbation 2. Anxiety 3. History of valvular heart disease RECS: 1. Taper CS 2. Bronchodilators. 3. Lasix. 4. DVT and GI prophylaxis. 5. Home O2 RISHI Medeiros MD Jun 13, 2016 17:05
[2016-06-13] MEDS ORDERED: predniSONE 5 MG TAB PO SCH (17:35)
[2016-06-13 20:22] VITALS: BP 158/80; RESP 16
[2016-06-13] MEDS: MONTELUKAST 10 MG TAB PO SCH (20:35)
[2016-06-14] MEDS: ALBUTEROL/IPRATROPIUM (NEB) 3 ML AMP HHN SCH ×6 (01:11→20:26)
[2016-06-14] MEDS: LORAZEPAM 2 MG INJ IV PRN ×2 (01:25→16:19)
[2016-06-14] MEDS: LEVOFLOXACIN 500 MG TAB PO SCH (05:44)
[2016-06-14] MEDS: FUROSEMIDE 40 MG INJ IV SCH (05:44)
[2016-06-14] MEDS: HYDROCODONE/APAP (10/325) TAB PO PRN ×2 (05:51→12:57)
[2016-06-14] MEDS: clonAZEPAM 0.5 MG TAB PO PRN ×2 (06:26→20:35)
--- NOTE | 2016-06-14 07:10 | PN ---
Date/Time of Note Date/Time of Note DATE: 06/14/16 TIME: 07:06 Assessment/Plan VTE Prophylaxis VTE Prophylaxis Intervention: LMWH Lines/Catheters IV [facility]from [facility] Urinary Cath still in place: No Assessment/Plan Problems: (1) COPD (chronic obstructive pulmonary disease) Status: Chronic Comment: He is improved remarkably and is at a point where he is stable for discharge. As noted in the pulmonary note yesterday he will need home oxygen which I have ordered this morning. BiPAP also. His medication regimen is well compensated and working well. He still needs to address issues with his heart valve Qualifiers: COPD type: COPD with acute exacerbation Qualified Code: J44.1 - Chronic obstructive pulmonary disease with acute exacerbation (2) Hypertension Status: Acute Comment: Adequately controlled Qualifiers: Hypertension type: essential hypertension Qualified Code: I10 - Essential hypertension (3) Migraine syndrome Status: Chronic Comment: Improved significantly he should go out on prophylactic therapy using topiramate (4) Major depressive disorder, recurrent episode with anxious distress Status: Chronic Comment: Stable and in fact improved (5) Aortic stenosis, severe Status: Chronic Comment: This will be 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 (8) Steroid-induced hyperglycemia Status: Acute Comment: Noted should resolve nicely as we taper down on his steroids. Assessment/Plan One cell the discharge planning arrangements have been made by case management he may be discharged Subjective 24 Hr Interval Summary Free Text/Dictation Patient reports that he is significantly improved and feels ready to go home. He reports he will need his oxygen and BiPAP. Constitutional: no complaints (Denies fevers chills or sweats) Respiratory: no complaints (Denies wheezing or shortness of breath or cough) Cardiovascular: no complaints Gastrointestinal: no complaints Genitourinary: no complaints (Please note postvoid residual is only 20 cc) Neurologic: no complaints (Migraine stopped) Exam/Review of Systems Vital Signs Vitals Vital Signs Date Time Temp Pulse Resp B/P Pulse Ox O2 Delivery O2 Flow Rate FiO2 06/14/16 06:03 77 20 94 Nasal Cannula 2.0 06/13/16 20:22 98.2 158/80 Intake and Output 06/13/16 06/13/16 06/14/16 15:00 23:00 07:00 Intake Total 800 ml 450 ml Output Total 900 ml 214 ml Balance -100 ml 236 ml Exam Constitutional: alert, oriented Neck: non-tender, supple Respiratory: clear to auscultation, diminished breath sounds (Increased AP diameter decreased IT ratio) Cardiovascular: nl pulses, regular rate and rhythm Results Result Diagram: 06/13/16 0550 06/13/16 0550 Medications Medications Current Medications Lorazepam (Ativan) 0.5 mg Q6H PRN IV ANXIETY Last administered on 06/14/16 01: 25; Admin Dose 0.5 MG; Start 06/07/16 at 23:00 Ondansetron HCl (Zofran Inj) 4 mg Q6H PRN IV NAUSEA AND/OR VOMITING; Start at 23:00 Nitroglycerin (Nitroglycerin (Sl Tab) 0.4 Mg) 1 tab Q5M PRN SL CHEST PAIN; Start 06/07/16 at 23:00 Acetaminophen (Tylenol Tab) 650 mg Q6H PRN PO PAIN LEVEL 1-3 OR FEVER Last administered on 06/08/16 08:44; Admin Dose 650 MG; Start 06/07/16 at 23:00 Morphine Sulfate (morphine) 2 mg Q4H PRN IV PAIN LEVEL 7-10 Last administered on 06/13/16 14:48; Admin Dose 2 MG; Start 06/07/16 at 23:00 Docusate Sodium (Colace) 100 mg Q12H PRN PO CONSTIPATION; Start 06/07/16 at 23: 00 Famotidine (Pepcid) 20 mg Q12 PO Last administered on 06/13/16 20:36; Admin Dose 20 MG; Start 06/08/16 at 09:00 Enoxaparin Sodium (Lovenox) 40 mg DAILY SC Last administered on 06/13/16 08:33 ; Admin Dose 40 MG; Start 06/08/16 at 09:00 Aspirin (Aspirin) 40 mg DAILY PO Last administered on 06/13/16 08:31; Admin Dose 40 MG; Start 06/09/16 at 09:00 Acetaminophen/ Hydrocodone Bitart ([place] (10/325)) 1 tab Q4H PRN PO PAIN Last administered on 06/14/16 05:51; Admin Dose 1 TAB; Start 06/08/16 at 12:00 Sumatriptan Succinate (Imitrex) 100 mg DAILY PRN PO HEADACHE Last administered on 06/09/16 15:53; Admin Dose 100 MG; Start 06/09/16 at 15:00 Citalopram Hydrobromide (Celexa) 20 mg DAILY PO Last administered on 06/13/16 08:31; Admin Dose 20 MG; Start 06/11/16 at 09:00 Levofloxacin (Levaquin) 500 mg DAILY@06 PO Last administered on 06/14/16 05:44 ; Admin Dose 500 MG; Start 06/10/16 at 18:00 Loperamide HCl (Imodium Cap) 2 mg QID PRN PO DIARRHEA Last administered on 08:50; Admin Dose 2 MG; Start 06/12/16 at 08:30 Clonidine (Catapres) 0.1 mg Q6H PRN PO ELEVATED BLOOD PRESSURE Last administered on 06/12/16 08:50; Admin Dose 0.1 MG; Start 06/12/16 at 08:30 Furosemide (Lasix) 40 mg DAILY@06 IV Last administered on 06/14/16 05:44; Admin Dose 40 MG; Start 06/12/16 at 10:30 Salmeterol Xinafoate/ Fluticasone (Advair 250/50 Diskus) 1 inh BID INH Last administered on 06/13/16 20:35; Admin Dose 1 INH; Start 06/13/16 at 09:00 Tiotropium [place] (Spiriva) 1 inh DAILY INH Last administered on 06/13/16 09: 24; Admin Dose 1 INH; Start 06/13/16 at 09:00 Topiramate (Topamax) 25 mg BID PO Last administered on 06/13/16 20:36; Admin Dose 25 MG; Start 06/13/16 at 09:00 Montelukast Sodium (Singulair) 10 mg HS PO Last administered on 06/13/16 20:35 ; Admin Dose 10 MG; Start 06/13/16 at 21:00 Fish Oil (Fish Oil) 2,000 mg BID PO Last administered on 06/13/16 20:36; Admin Dose 2,000 MG; Start 06/13/16 at 09:00 Clonazepam (Klonopin) 1 mg BID PRN PO ANXIETY Last administered on 06/14/16 06: 26; Admin Dose 1 MG; Start 06/13/16 at 09:00 Methylprednisolone (Medrol) 4 mg QAM PO Last administered on 06/13/16 10:55; Admin Dose 4 MG; Start 06/13/16 at 09:30 AIYANA ALY MD Jun 14, 2016 07:09
[2016-06-14 08:09] VITALS: BP 137/92; RESP 18
[2016-06-14] MEDS: SALMETEROL/FLUTICASONE 250/50 INHA INH SCH ×2 (09:41→20:36)
[2016-06-14] MEDS: ASPIRIN 81 MG TAB PO SCH (09:42)
[2016-06-14] MEDS: CITALOPRAM 20 MG TAB PO SCH (09:42)
[2016-06-14] MEDS: TIOTROPIUM 18 MCG CAPSULE INHA DEV INH SCH (09:43)
[2016-06-14] MEDS: TOPIRAMATE 25 MG TAB PO SCH ×2 (09:43→20:35)
[2016-06-14] MEDS: FISH OIL 1,000 MG CAP PO SCH ×2 (09:43→20:35)
[2016-06-14] MEDS: METHYLPREDNISOLONE 4 MG TAB PO SCH ×2 (09:43→17:20)
[2016-06-14] MEDS: FAMOTIDINE 20 MG TAB PO SCH ×2 (09:43→20:35)
[2016-06-14] MEDS: ENOXAPARIN 40 MG/0.4 ML SYG SC SCH (09:44)
[2016-06-14] MEDS: LOPERAMIDE 2 MG CAP PO PRN (10:17)
--- NOTE | 2016-06-14 15:21 | CONS ---
Date/Time of Note Date/Time of Note DATE: 06/14/16 TIME: 15:20 Consult Date/Type/Reason Admit Date/Time Jun 07, 2016 at 22:21 Initial Consult Date 06/08/16 Type of Consultation: Pulmonary Subjective No events. Doing well; feels ready to go home. Objective Vital Signs Date Time Temp Pulse Resp B/P Pulse Ox O2 Delivery O2 Flow Rate FiO2 06/14/16 12:15 97 18 92 Nasal Cannula 2.0 06/14/16 08:09 97.7 137/92 Intake and Output 06/13/16 06/13/16 06/14/16 15:00 23:00 07:00 Intake Total 800 ml 450 ml Output Total 900 ml 214 ml Balance -100 ml 236 ml HEENT: Neck supple; no JVD; no LAD CVS: RRR, S1 and S2 CHEST: Decreased BS b/l ABD: Soft, NT, + BS EXT: No c/c/e Results/Medications Result Diagram: 06/13/16 0550 06/13/16 0550 Medications Current Medications Lorazepam (Ativan) 0.5 mg Q6H PRN IV ANXIETY Last administered on 06/14/16 01: 25; Admin Dose 0.5 MG; Start 06/07/16 at 23:00 Ondansetron HCl (Zofran Inj) 4 mg Q6H PRN IV NAUSEA AND/OR VOMITING; Start at 23:00 Nitroglycerin (Nitroglycerin (Sl Tab) 0.4 Mg) 1 tab Q5M PRN SL CHEST PAIN; Start 06/07/16 at 23:00 Acetaminophen (Tylenol Tab) 650 mg Q6H PRN PO PAIN LEVEL 1-3 OR FEVER Last administered on 06/08/16 08:44; Admin Dose 650 MG; Start 06/07/16 at 23:00 Morphine Sulfate (morphine) 2 mg Q4H PRN IV PAIN LEVEL 7-10 Last administered on 06/13/16 14:48; Admin Dose 2 MG; Start 06/07/16 at 23:00 Docusate Sodium (Colace) 100 mg Q12H PRN PO CONSTIPATION; Start 06/07/16 at 23: 00 Famotidine (Pepcid) 20 mg Q12 PO Last administered on 06/14/16 09:43; Admin Dose 20 MG; Start 06/08/16 at 09:00 Enoxaparin Sodium (Lovenox) 40 mg DAILY SC Last administered on 06/14/16 09:44 ; Admin Dose 40 MG; Start 06/08/16 at 09:00 Aspirin (Aspirin) 40 mg DAILY PO Last administered on 06/14/16 09:42; Admin Dose 40 MG; Start 06/09/16 at 09:00 Acetaminophen/ Hydrocodone Bitart ([place] (10/325)) 1 tab Q4H PRN PO PAIN Last administered on 06/14/16 12:57; Admin Dose 1 TAB; Start 06/08/16 at 12:00 Sumatriptan Succinate (Imitrex) 100 mg DAILY PRN PO HEADACHE Last administered on 06/09/16 15:53; Admin Dose 100 MG; Start 06/09/16 at 15:00 Citalopram Hydrobromide (Celexa) 20 mg DAILY PO Last administered on 06/14/16 09:42; Admin Dose 20 MG; Start 06/11/16 at 09:00 Levofloxacin (Levaquin) 500 mg DAILY@06 PO Last administered on 06/14/16 05:44 ; Admin Dose 500 MG; Start 06/10/16 at 18:00 Loperamide HCl (Imodium Cap) 2 mg QID PRN PO DIARRHEA Last administered on 10:17; Admin Dose 2 MG; Start 06/12/16 at 08:30 Clonidine (Catapres) 0.1 mg Q6H PRN PO ELEVATED BLOOD PRESSURE Last administered on 06/12/16 08:50; Admin Dose 0.1 MG; Start 06/12/16 at 08:30 Furosemide (Lasix) 40 mg DAILY@06 IV Last administered on 06/14/16 05:44; Admin Dose 40 MG; Start 06/12/16 at 10:30 Salmeterol Xinafoate/ Fluticasone (Advair 250/50 Diskus) 1 inh BID INH Last administered on 06/14/16 09:41; Admin Dose 1 INH; Start 06/13/16 at 09:00 Tiotropium [place] (Spiriva) 1 inh DAILY INH Last administered on 06/14/16 09: 43; Admin Dose 1 INH; Start 06/13/16 at 09:00 Topiramate (Topamax) 25 mg BID PO Last administered on 06/14/16 09:43; Admin Dose 25 MG; Start 06/13/16 at 09:00 Montelukast Sodium (Singulair) 10 mg HS PO Last administered on 06/13/16 20:35 ; Admin Dose 10 MG; Start 06/13/16 at 21:00 Fish Oil (Fish Oil) 2,000 mg BID PO Last administered on 06/14/16 09:43; Admin Dose 2,000 MG; Start 06/13/16 at 09:00 Clonazepam (Klonopin) 1 mg BID PRN PO ANXIETY Last administered on 06/14/16 06: 26; Admin Dose 1 MG; Start 06/13/16 at 09:00 Methylprednisolone (Medrol) 4 mg QAM PO Last administered on 06/14/16 09:43; Admin Dose 4 MG; Start 06/13/16 at 09:30 Assessment/Plan Additional Assessment/Plan IMPRESSION: 1. COPD exacerbation 2. Anxiety 3. History of valvular heart disease RECS: 1. Taper CS 2. Bronchodilators. 3. Home oxygen to be arranged 4. D/C planning 5. Anticipate d/c home tomorrow. RISHI SERRANO MD Jun 14, 2016 15:21
[2016-06-14 20:10] VITALS: BP 141/84; RESP 16
[2016-06-14] MEDS: MONTELUKAST 10 MG TAB PO SCH (20:35)
[2016-06-15] VITALS (10 sets, daily range): BP systolic 96–146; BP diastolic 60–105; PULSE 82–98; RESP 17–18; Ht 185.4 cm; Wt 106.5 kg
[2016-06-15] MEDS: ALBUTEROL/IPRATROPIUM (NEB) 3 ML AMP HHN SCH ×6 (00:52→21:57)
[2016-06-15] MEDS: LEVOFLOXACIN 500 MG TAB PO SCH (05:13)
[2016-06-15] MEDS: FUROSEMIDE 40 MG INJ IV SCH (05:14)
[2016-06-15] MEDS: HYDROCODONE/APAP (10/325) TAB PO PRN ×2 (05:16→18:01)
[2016-06-15] MEDS: LORAZEPAM 2 MG INJ IV PRN (06:27)
[2016-06-15] MEDS ORDERED: ASPIRIN 325 MG TAB PO ONE (09:00)
[2016-06-15] MEDS ORDERED: SOD CHLORIDE 0.9% 1,000 ML IV ONE (09:00)
[2016-06-15 09:10] LABS: ADD SCAN DIFF NO
[2016-06-15 09:11] LABS: BASOPHIL # 0.1 10^3/ul (0.0-0.1); BASOPHILS % 0.4 % (0.0-2.0); EOSINOPHILS # 0.3 10^3/ul (0.0-0.5); EOSINOPHILS % 2.5 % (0.0-7.0); HEMATOCRIT 46.2 % (42.0-52.0); HEMOGLOBIN 15.6 g/dl (14.0-18.0); LYMPHOCYTES # 2.4 10^3/ul (0.8-2.9); LYMPHOCYTES % 21.1 % (15.0-51.0); MEAN CORPUSCULAR HEMOGLOBIN 30.8 pg (29.0-33.0); MEAN CORPUSCULAR HGB CONC 33.8 g/dl (32.0-37.0); MEAN CORPUSCULAR VOLUME 91.1 fl (82.0-101.0); MEAN PLATELET VOLUME 9.3 fl (7.4-10.4); MONOCYTE # 1.3 10^3/ul (0.3-0.9); MONOCYTES % 11.7 % (0.0-11.0); NEUTROPHIL # 6.9 10^3/ul (1.6-7.5); NEUTROPHILS % 60.5 % (39.0-77.0); PLATELET COUNT 210 10^3/UL (140-415); RED BLOOD COUNT 5.07 10^6/ul (4.70-6.10); RED CELL DISTRIBUTION WIDTH 13.8 % (11.5-14.5); WHITE BLOOD COUNT 11.4 10^3/ul (4.8-10.8)
[2016-06-15 09:24] LABS: INR 0.95; PROTIME 12.7 Sec (12.2-14.2)
[2016-06-15 09:31] LABS: CREATININE 0.94 mg/dl (0.61-1.24)
[2016-06-15 09:32] LABS: CALCIUM 8.6 mg/dl (8.4-10.2); MAGNESIUM 2.2 mg/dl (1.7-2.5)
[2016-06-15 09:42] LABS: TROPONIN-I 0.026 ng/ml (0.00-0.12)
[2016-06-15 09:46] LABS: CK-MB 1.48 ng/ml (0.0-2.4)
[2016-06-15] MEDS: FISH OIL 1,000 MG CAP PO SCH ×2 (10:33→20:40)
[2016-06-15] MEDS: clonAZEPAM 0.5 MG TAB PO PRN ×2 (10:33→20:41)
[2016-06-15] MEDS: CITALOPRAM 20 MG TAB PO SCH (10:33)
[2016-06-15] MEDS: FAMOTIDINE 20 MG TAB PO SCH ×2 (10:33→20:40)
[2016-06-15] MEDS: morphine 2 MG INJ IV PRN ×2 (10:34→22:05)
[2016-06-15] MEDS: ENOXAPARIN 40 MG/0.4 ML SYG SC SCH (10:37)
--- NOTE | 2016-06-15 11:35 | PN ---
DATE: 06/15/2016 SUBJECTIVE: I was emergently called to the patient's bedside because of hypotension and diaphoresis. Nursing reports that patient had complained about chest pain a few minutes earlier and was given n itroglycerin; however, became diaphoretic and agitated and they checked his blood pressure and he bowman d systolic blood pressures in the 60s. I spoke with the patient, the patient denied chest pain at t he time. He was mildly diaphoretic but prior to my ____ at the bedside he had a large foul smelling bowel movement. He felt very weak, but a little more comfortable. He had been started on normal mukul ine bolus infusion of 1 liter that I had ordered previously. PHYSICAL EXAMINATION VITAL SIGNS: Temperature 98.1, pulse 87, respirations were 27, blood pressure 88/64, saturations we re 94% via oxygen nasal cannula at 2 liters a minute. GENERAL: Anxious male, but he looked comfortable. HEENT: Head is normocephalic. Pupils equal and reactive. Mucous membranes are moist. NECK: Supple without JVD. CHEST: With reduced air entry bilaterally, but without crackles, wheezes or rales. CARDIOVASCULAR: Heart sounds S1 and S2, without murmurs. ABDOMEN: Soft, nontender, nondistended. There was no lower extremity edema. SKIN: Mildly diaphoretic but no jaundice or rash. LABORATORY DATA: WBC count is 11,000 today, hemoglobin, hematocrit, and platelet counts were normal. His basic metabolic profile, his BUN was 28, same as it was on the 4th. Glucose was 165, hemoglob in A1c, previously 6.6, lactic acid today 1.9. This was ordered emergently. Calcium 8.6. His first set of cardiac enzymes were negative. Previously patient has had a history of hypomagnesemia that has been corrected and lipid profile con sistent with hypertriglyceridemia and elevated total cholesterol levels and he has had normocytic/n ormochromic anemia previously. He has had a ____ that was negative May and June 11. MEDICATIONS: 1. Right now I ordered for aspirin 325 mg to be given. 2. Patient is on Ativan p.r.n., which he got this morning. 3. in addition to the nitroglycerin. 4. He also got 1 dose of intravenous Lasix 40 mg IV daily, which he also got this morning, all of w hich were likely contributing to his hypertension. OTHER MEDICATIONS INCLUDE: 1. Pepcid 20 mg p.o. q.12h. 2. Lovenox 40 subq daily. 3. DuoNeb every 4 hours and 2 hours as needed. 4. Aspirin 40 mg daily. 5. [place] 10/325 q.4h. p.r.n. 6. Imitrex 100 p.o. daily. 7. Celexa 20 daily. 8. Levaquin 500 p.o. daily. 9. Imodium 2 mg p.r.n. diarrhea. 10. Clonidine p.r.n. elevated blood pressure greater than 160. 11. Advair 1 inhalation b.i.d. 12. Spiriva 1 inhalation daily. 13. Topamax 25 b.i.d. 14. Singulair 10 mg at bedtime. 15. Fish oil 2 grams t.i.d. 16. Klonopin 1 mg b.i.d. p.r.n. anxiety. 17. Medrol 4 mg in the a.m. and 2 mg before dinner. IMAGING STUDIES: He had a chest x-ray from June 13 which showed clear lungs, atherosclerosis and pr ior left shoulder surgery. AN EKG that was emergently done at the bedside which I reviewed, was normal sinus rhythm with a rate of 87. There was no ____ visible ST elevations or reciprocal depressions. However, patient did bowman ve evidence of left atrial enlargement and other nonspecific EKG findings. IMPRESSION: A 60-year-old male who was being managed for COPD exacerbation, who was improving slowl y. Currently on bronchodilator and oral corticosteroid therapy and now with the followin. Acute hypertensive episode associated with mild diarrhea and mild diaphoresis that is improving with IV fluid hydration. 2. Recurrent diarrhea. 3. Chronic obstructive pulmonary disease exacerbation that has significantly improved. 4. Dyslipidemia. 5. Prediabetes. 6. Chronic hepatitis C. 7. Intermittent headaches. 8. Flash migraine. 9. Chronic depression and anxiety. PLAN: I suspect the patient's symptoms due to a combination of diuresis, nitroglycerin therapy which he was given as well as antianxiety, superimposed by vasovagal event where he had a large bowel mov ement. However, we will transfer him to telemetry floor to be observed for a short while and rule hi m out for an acute coronary syndrome. I will also taper down diuretic therapy at this time because patient is no longer fluid overloaded. Respiratory murillo, he is doing better. Continue bronchodilat or therapy, continue current regimen. Send stool for repeat C. diff testing. Start the patient on p robiotics as well and continue all the supportive care. I have discussed with the patient, as at th e time I was leaving the patient's bedside, the patient was alert and oriented and was much more com fortable. His systolic blood pressure had improved to 96, diastolic 60 and disposition is to transf er to telemetry floor for further monitoring. I have spoken with the ____. I discussed with the [facility]. I have spoken with the patient. Reviewed imaging. Reviewed labs. DISPOSITION: Overall, evaluation time has been about 40 minutes of which the bulk of it was spent a t the patient's bedside. Dictated By: JULIUS MINOR MD BA/CRISTINA Conf#: [id number] DID#: [id number]
[2016-06-15] MEDS: SALMETEROL/FLUTICASONE 250/50 INHA INH SCH ×2 (12:36→20:41)
[2016-06-15] MEDS: TIOTROPIUM 18 MCG CAPSULE INHA DEV INH SCH (12:36)
[2016-06-15] MEDS: TOPIRAMATE 25 MG TAB PO SCH ×2 (12:38→20:39)
[2016-06-15] MEDS: METHYLPREDNISOLONE 4 MG TAB PO SCH ×2 (12:38→13:03)
--- NOTE | 2016-06-15 14:04 | RADRPT ---
Echocardiogram Report Patient Name: LETHA ARGUETA Gender: Male Date: 1955 Study Date: 15-Jun-2016 Temp Recruiter: ALYSIA [facility] Location: 507 Ref. Physician: JULIUS MINOR Quality: Technically Difficult Study Procedures: Transthoracic echocardiogram with complete 2D, M-Mode, and doppler examination. Indications: Shortness of breath. 2D/M Mode Doppler Measurement Value Normal Ranges Measurement Value Normal Ranges LVIDd 2D 4.8 3.5 - 5.6 cm RAVINDRA Vmax 0.7 cm2 LVIDs 2D 3.3 2.1 - 4.1 cm RAVINDRA VTI 0.7 cm2 LVPWd 2D 1.2 0.6 - 1.1 cm AV Mean Paul 2.3 m/sec IVSd 2D 1.2 0.6 - 1.1 cm AV Mean PG 25.9 mmHg AoR Diam 2D 2.1 2.0 - 3.7 cm AV Peak Paul 3.3 m/sec EDV 2D 105.6 cm3 AV Peak PG 44.1 mmHg ESV 2D 34.7 cm3 AV VTI 61.7 cm LVOT Diam 1.8 cm LVOT Mean Paul 0.6 m/sec LVOT Mean PG 1.7 mmHg LVOT Peak Paul 0.9 m/sec LVOT Peak PG 3.3 mmHg LVOT VTI 17.0 cm MV E Peak Paul 0.7 m/sec MV A Peak Paul 0.8 m/sec MV E/A 0.8 MV Decel Time 129 msec MV Decel [place] 5 MV E/A 0.8 Findings Left Ventricle: Normal left ventricular systolic function. Normal left ventricular cavity size. Mild concentric left ventricular hypertrophy. Ejection fraction is visually estimated at 65 %. Tissue Doppler/Mitral Doppler indices are consistent with impaired relaxation (Stage I diastolic dysfunction). Right Ventricle: Normal right ventricular size. Normal right ventricular systolic function. Left Atrium: The left atrium is normal in size. Right Atrium: The right atrium is normal in size. Mitral Valve: Mild mitral leaflet calcification. Mild mitral annular calcification. Trace mitral regurgitation. Aortic Valve: Aortic valve not well visualized. Moderate aortic stenosis. Aortic valve Max velocity 3.30 m/sec. Max PG 44.10 mmHg. Mean PG 23.00 mmHg. Aortic cusps appear moderately calcified. No aortic regurgitation. Tricuspid Valve: Tricuspid valve not well visualized. There is trace tricuspid regurgitation. Pulmonic Valve: Pulmonic valve not well visualized. There is trace pulmonic regurgitation. Pericardium: There is an anterior echo free space consistent with epicardial fat pad. Aorta: Normal aortic root. IVC: Dilated IVC with respiratory collapse consistent with elevated right atrial pressure. Conclusions 1.Normal left ventricular systolic function. Normal left ventricular cavity size. Mild concentric left ventricular hypertrophy. Ejection fraction is visually estimated at 65 %. Tissue Doppler/Mitral Doppler indices are consistent with impaired relaxation (Stage I diastolic dysfunction). 2.Mild mitral leaflet calcification. Mild mitral annular calcification. Trace mitral regurgitation. 3.Aortic valve not well visualized. Moderate aortic stenosis. Aortic valve Max velocity 3.30 m/sec. Max PG 44.10 mmHg. Mean PG 23.00 mmHg. Aortic cusps appear moderately calcified. No aortic regurgitation. 4.Tricuspid valve not well visualized. There is trace tricuspid regurgitation. Electronically Signed By: Raymond London 15-Jun-2016 14:03:38 -0800 Patient Name: LETHA ARGUETA Study Date: 15-Jun-2016 [id number]
[2016-06-15] MEDS: LOPERAMIDE 2 MG CAP PO PRN ×2 (14:20→16:00)
--- NOTE | 2016-06-15 15:48 | PN ---
DATE: 06/15/2016 SUBJECTIVE: This is a pulmonary followup note. The patient remains stable this morning; however, unfortunately had a presyncopal episode with subsequent shortness of breath, orthopnea and PND. Pat mustaphant's symptoms likely secondary to nitroglycerin and diuretics. He is more stable at present. PHYSICAL EXAMINATION: VITAL SIGNS: Temperature 98, pulse 93, blood pressure 113/71, O2 saturation 94% on 2 L nasal cannul a. NECK: Supple. No JVD or lymphadenopathy. CARDIAC: S1, S2, no added sounds or murmurs. CHEST: Diminished air entry bilaterally. ABDOMEN: Soft, nontender. No guarding or rebound. EXTREMITIES: No cyanosis, clubbing, edema. NEUROLOGIC: Grossly intact. No focal deficits. IMPRESSION AND PLAN: 1. Syncopal episode, likely secondary to medications. 2. Resolving hypoxemia, respiratory failure. 3. Underlying history of chronic obstructive pulmonary. PLAN: 1. Monitor blood pressure. 2. Hold antihypertensives. 3. Cardiac recommendations. Dictated By: TANK PATEL/CRISTINA Conf#: [id number] DID#: [id number]
--- NOTE | 2016-06-15 17:58 | RADRPT ---
Vent Rate: 84 bpm RR Interval: 0 msec [place] Interval: 122 msec QRS Duration: 130 msec QT Interval: 414 msec QTC Interval: 489 msec P-R-T [place]: 43 - 81 - 53 degrees Normal sinus rhythm Possible Left atrial enlargement Right bundle branch block Abnormal ECG Electronically Signed By: Anibal Mansfield [id number]
[2016-06-15] MEDS: MONTELUKAST 10 MG TAB PO SCH (20:41)
[2016-06-16] VITALS (10 sets, daily range): BP systolic 110–130; BP diastolic 79–84; PULSE 71–103; RESP 18–20
[2016-06-16] MEDS: ALBUTEROL/IPRATROPIUM (NEB) 3 ML AMP HHN SCH ×5 (01:00→16:31)
[2016-06-16] MEDS: morphine 2 MG INJ IV PRN (06:02)
[2016-06-16 07:56] LABS: ADD SCAN DIFF NO
[2016-06-16 08:00] LABS: BASOPHILS % 0.3 % (0.0-2.0); EOSINOPHILS # 0.3 10^3/ul (0.0-0.5); EOSINOPHILS % 3.6 % (0.0-7.0); HEMATOCRIT 47.1 % (42.0-52.0); HEMOGLOBIN 15.6 g/dl (14.0-18.0); LYMPHOCYTES # 2.3 10^3/ul (0.8-2.9); LYMPHOCYTES % 24.2 % (15.0-51.0); MEAN CORPUSCULAR HEMOGLOBIN 30.2 pg (29.0-33.0); MEAN CORPUSCULAR HGB CONC 33.1 g/dl (32.0-37.0); MEAN CORPUSCULAR VOLUME 91.3 fl (82.0-101.0); MEAN PLATELET VOLUME 9.7 fl (7.4-10.4); MONOCYTE # 1.1 10^3/ul (0.3-0.9); MONOCYTES % 11.5 % (0.0-11.0); NEUTROPHIL # 5.3 10^3/ul (1.6-7.5); NEUTROPHILS % 55.8 % (39.0-77.0); PLATELET COUNT 206 10^3/UL (140-415); RED BLOOD COUNT 5.16 10^6/ul (4.70-6.10); RED CELL DISTRIBUTION WIDTH 14.1 % (11.5-14.5); WHITE BLOOD COUNT 9.4 10^3/ul (4.8-10.8)
[2016-06-16 08:32] LABS: POTASSIUM 3.9 mmol/L (3.5-5.1)
[2016-06-16 08:35] LABS: CREATININE 0.88 mg/dl (0.61-1.24)
[2016-06-16 08:36] LABS: MAGNESIUM 2.4 mg/dl (1.7-2.5)
[2016-06-16] MEDS ORDERED: ASPIRIN (EC) 81 MG TAB PO SCH (09:00)
[2016-06-16] MEDS ORDERED: FUROSEMIDE 40 MG TAB PO SCH (09:00)
[2016-06-16] MEDS: SALMETEROL/FLUTICASONE 250/50 INHA INH SCH (09:35)
[2016-06-16] MEDS: TIOTROPIUM 18 MCG CAPSULE INHA DEV INH SCH (09:35)
[2016-06-16] MEDS: METHYLPREDNISOLONE 4 MG TAB PO SCH ×2 (09:36→17:12)
[2016-06-16] MEDS: FAMOTIDINE 20 MG TAB PO SCH (09:36)
[2016-06-16] MEDS: TOPIRAMATE 25 MG TAB PO SCH (09:36)
[2016-06-16] MEDS: FISH OIL 1,000 MG CAP PO SCH (09:36)
[2016-06-16] MEDS: CITALOPRAM 20 MG TAB PO SCH (09:36)
[2016-06-16] MEDS: ENOXAPARIN 40 MG/0.4 ML SYG SC SCH (09:38)
[2016-06-16] MEDS: clonAZEPAM 0.5 MG TAB PO PRN (09:40)
[2016-06-16] MEDS ORDERED: FURO40TA4 PO (11:42)
[2016-06-16] MEDS ORDERED: FAMO20TA18 PO (11:42)
[2016-06-16] MEDS ORDERED: ASPI-664 PO (11:42)
[2016-06-16] MEDS ORDERED: TOPI25TA38 PO (11:42)
[2016-06-16] MEDS ORDERED: ADV25050 INH (11:42)
[2016-06-16] MEDS ORDERED: OMEG1CAP55 PO (11:42)
[2016-06-16] MEDS ORDERED: TIOT18CA INH (11:42)
[2016-06-16] MEDS ORDERED: CITA20TA11 PO (11:42)
[2016-06-16] MEDS ORDERED: PRED10TA PO ×2 (11:42→14:01)
[2016-06-16] MEDS ORDERED: IPRA4AER INHALATION (11:42)
[2016-06-16] MEDS ORDERED: LACT1CAP57 PO (11:43)
[2016-06-16] MEDS ORDERED: LORATADINE 10 MG TAB PO SCH (14:00)
[2016-06-16] MEDS: LOPERAMIDE 2 MG CAP PO PRN (15:09)
[2016-06-16] MEDS ORDERED: MED4DP PO (16:45)
--- NOTE | 2016-06-16 16:54 | DS ---
Date/Time of Note Date/Time of Note DATE: 06/16/16 TIME: 16:52 Discharge Summary Admission/Discharge Info Admit Date/Time Jun 07, 2016 at 22:21 Discharge Date/Time Final Diagnosis 60-year-old male who 1. HTN 2. Recurrent diarrhea. 3. Chronic obstructive pulmonary disease exacerbation that has significantly improved. 4. Dyslipidemia. 5. Prediabetes. 6. Chronic hepatitis C. 7. Intermittent headaches. 8. Flash migraine. 9. Chronic depression and anxiety. Patient Condition: Stable Hx of Present Illness 60 yo male with a past medical history of COPD, migraines, who presents with acute shortness of breath. He states that over the last 3 days, the shortness of breath has limited him to walk about 100 ft, and worsened progressively. He is unable to speak in full sentences. He recently was in [facility] for a pneumonia, requiring hospitalization for one week, discharged on 05/26/16, given antibiotics and 1 week steroid taper. Since then he has worsening fatigue and headache. Denies any chest pain, loss of consciousness, fevers/chills, nausea/ vomiting/diarrhea/constipation or other constitutional symptoms. He did receive his flu shots. Denies any sick contacts. ED course: continuous breathing treatment, levaquin, prednisone Home Meds Active Scripts Methylprednisolone* (Medrol* DOSE PACK) 4 Mg/Dose-Pack Tab.ds.pk, 4 MG PO . DIRECTED, #1 PACKET Prov:KERRI MINORMaria [place] Man. 06/16/16 Lactobacillus Rhamnosus* (Culturelle*) 1 Each Cap.sprink, 1 CAP PO BID for 30 Days, CAP Prov:KERRI MINORMaria [place] Man. 06/16/16 Albuterol/Ipratropium* (Combivent Respimat*) 20-100 Mcg/Inh - 4 Gm Aer.w.adap, 2 PUFF INHALATION Q4H Y for sob / cough, #1 INHALER 1 Refill Prov:FABIAN MINORNATY Sanz 06/16/16 Topiramate* (Topamax*) 25 Mg Tablet, 25 MG PO BID for 30 Days, TAB 1 Refill Prov:FABAIN MINORNATY Man. 06/16/16 Tiotropium [place]* (Spiriva*) 18 Mcg Cap.w.dev, 1 INH INH DAILY, #1 VIAL 1 Refill Prov:JULIUS MINOR. 06/16/16 Salmeterol Xinaf/Fluticasone* (Advair*) 250-50 Diskus Inhaler, 1 INH INH BID, # 1 VIAL 1 Refill Prov:JULIUS MINOR. 06/16/16 [place]-3/Dha/Epa/Fish Oil (FISH OIL EC 1,000 MG SOFTGEL) 1 Each Capsule.dr, 2000 MG PO BID for 30 Days, 3 Refills Prov:JULIUS MINOR. 06/16/16 Furosemide* (Furosemide*) 40 Mg Tablet, 40 MG PO DAILY for 30 Days, TAB Prov:JULIUS MINOR. 06/16/16 Famotidine* (Famotidine*) 20 Mg Tablet, 20 MG PO Q12 for 14 Days, TAB Prov:JULIUS MINOR. 06/16/16 Citalopram Hydrobromide* (Celexa*) 20 Mg Tablet, 20 MG PO DAILY for 30 Days, TAB 2 Refills Prov:JULIUS MINOR. 06/16/16 Aspirin* (Aspirin* EC) 81 Mg Tablet., 81 MG PO DAILY for 30 Days Prov:JULIUS MINOR. 06/16/16 Discontinued Scripts Prednisone* (Prednisone*) 10 Mg Tab, 10 MG PO DAILY, #21 TAB Prov:JULIUS MNIOR. 06/16/16 Pending Labs Laboratory Tests Test 06/16/16 06:59 Anion Gap 18 (8-16) Basophils # 0.010^3/ul (0.0-0.1) Basophils % 0.3% (0.0-2.0) Blood Urea Nitrogen 30mg/dl (7-20) Calcium Level 9.0mg/dl (8.4-10.2) Carbon Dioxide Level 26mmol/L (21-31) Chloride Level 104mmol/L (97-110) Creatinine 0.88mg/dl (0.61-1.24) Eosinophils # 0.310^3/ul (0.0-0.5) Eosinophils % 3.6% (0.0-7.0) Glucose Level 98mg/dl (70-220) Hematocrit 47.1% (42.0-52.0) Hemoglobin 15.6g/dl (14.0-18.0) Lymphocytes # 2.310^3/ul (0.8-2.9) Lymphocytes % 24.2% (15.0-51.0) Magnesium Level 2.4mg/dl (1.7-2.5) Mean Corpuscular Hemoglobin 30.2pg (29.0-33.0) Mean Corpuscular Hemoglobin Concent 33.1g/dl (32.0-37.0) Mean Corpuscular Volume 91.3fl (82.0-101.0) Mean Platelet Volume 9.7fl (7.4-10.4) Monocytes # 1.110^3/ul (0.3-0.9) Monocytes % 11.5% (0.0-11.0) Neutrophils # 5.310^3/ul (1.6-7.5) Neutrophils % 55.8% (39.0-77.0) Nucleated Red Blood Cells # 0.010^3/ul (0.0-0.0) Nucleated Red Blood Cells % 0.0/100WBC (0.0-0.0) Platelet Count 71345^3/UL (140-415) Potassium Level 3.9mmol/L (3.5-5.1) Red Blood Count 5.1610^6/ul (4.70-6.10) Red Cell Distribution Width 14.1% (11.5-14.5) Sodium Level 144mmol/L (135-144) White Blood Count 9.410^3/ul (4.8-10.8) JULIUS MINOR Jun 16, 2016 16:53
--- NOTE | 2016-06-21 06:34 | DS ---
DATE OF ADMISSION: 06/07/2016 DATE OF DISCHARGE: 06/16/2016 FINAL DIAGNOSES: A 60-year-old male with 1. High blood pressure. 2. Recurrent diarrhea. 3. Chronic obstructive pulmonary disease exacerbation that has significantly improved. 4. Dyslipidemia. 5. Prediabetes. 6. Chronic hepatitis C. 7. Intermittent headaches. 8. Flash migraine. 9. Chronic depression and anxiety. 10. Moderate aortic stenosis. DISCHARGE CONDITION: Stable. PRESENTING COMPLAINT: Acute shortness of breath that worsened over the last 3 days prior to admissi on without chest pain. HOSPITAL COURSE: Full details are available in chart for review. In summary, this patient was admi tted and treated for COPD exacerbation. However, the day prior to discharge, he had a rapid respons e episode where he became acutely short of breath, transiently unresponsive, and diaphoretic. This was thought to be secondary to a combination of diuresis, nitroglycerine therapy, as well antianxiet y superimposed by a vasovagal event when he had a large bowel movement. He was observed on telemetr y floor after and had 3 sets of cardiac enzymes checked that came back negative. He had a 2D echoca rdiogram done that showed an EF of 65%, moderate aortic stenosis, and stage I diastolic dysfunction. He did well, and as of the day of discharge. he was feeling much better. He reported being back t o his normal state of health and was requesting to be discharged home. I also spoke with his sister , updated her on his plan of care, and notified her of his stable condition. She agreed with magnolia galvan. DISCHARGE MEDICATIONS: 1. Medrol Dosepak per patient's request, 1 pack to be used as directed. Per patient, prednisone do es not work well for him. 2. Culturelle 1 capsule b.i.d. for 30 days. 3. Combivent q. 4 p.r.n. 4. Topamax 25 b.i.d. 5. Spiriva 1 inhalation daily. 6. Advair 250/50 b.i.d. 7. Fish oil 1 gram b.i.d. 8. Lasix 40 mg daily. 9. Famotidine 20 q.12. 10. Celexa 20 daily. 11. Aspirin 81 daily. DISPOSITION: To home. ACTIVITY: As tolerated. FOLLOWUP: The patient is recommended to follow up with his primary care physician within a week to ensure continued resolution of symptoms and for serial lab work since he is on Lasix. He verbalized understanding with this plan. Time spent on discharge planning has been 35 minutes or more. Dictated By: JULIUS MINOR MD BA/NTS Conf#: [id number] DID#: [id number]
== END 2016-06-16 17:20 | disposition home or self-care (01) | DRG 190 ==
LOC: E/R 20:16 → MS4 22:21 → PP2 06-08 18:41 → TEL 06-15 09:19
PROVIDERS: ADMIT Student in an Organized Health Care Education/Training Program; ATTEND Student in an Organized Health Care Education/Training Program
DX: J44.1 Chronic obstructive pulmonary disease with (acute) exacerbation (principal); J96.21 Acute and chronic respiratory failure with hypoxia; E87.6 Hypokalemia; J44.0 Chronic obstructive pulmonary disease with (acute) lower respiratory infection; J20.9 Acute bronchitis, unspecified; I10 Essential (primary) hypertension; E78.5 Hyperlipidemia, unspecified; R73.03 Prediabetes; B18.2 Chronic viral hepatitis C; G43.909 Migraine, unspecified, not intractable, without status migrainosus; G44.89 Other headache syndrome; I35.0 Nonrheumatic aortic (valve) stenosis; R19.7 Diarrhea, unspecified; F41.8 Other specified anxiety disorders
CPT/HCPCS: 36415; 36600; 71010; 80048; 80053; 80061; 82550; 82553; 82803; 82962; 83036; 83605; 83690; 83735; 84100; 84443; 84484; 85025; 85610; 85730; 86803; 87075; 87205; 87340; 93005; 93306; 94640; 94644; 94645; 94664; 96365; 96366; 96375; J1650; J1940; J1956; J2060; J2270; J2920; J2930; J3480; J7030; J7509; J7512